=== PATIENT | female | born 1930 | race American Indian/Alaskan Native ===

== ENCOUNTER 2017-05-01 17:45 | Emergency (ER) | payer MEDICARE ==
--- NOTE | 2017-05-01 18:27 | EDM.PDOC ---
<Nikolai Rees - Last Filed: 05/01/17 18:57> ED HPI GENERAL MEDICAL PROBLEM - General Chief Complaint: Respiratory Problem Stated Complaint: COUGHING,CHEST HURTS [id number] Time Seen by Provider: 05/01/17 18:22 Source of Information: Reports: Patient History Limitations: Reports: No Limitations - History of Present Illness INITIAL COMMENTS - FREE TEXT/NARRATIVE: Patient complains of progressively worsening cough. She notes dyspnea with exertion. Denies chest pressure or chest tightness. Complains of a scratchy throat. Cough is nonproductive. No fever chills or night sweats. Complains of fatigue and generalized body ache. No ear pain or pressure. No sinus symptoms. No neck pressure or enlarged lymph nodes Duration: Day(s): Location: Reports: Neck, Chest Improves with: Reports: Rest Associated Symptoms: Reports: Cough, Malaise. Denies: Diaphoresis, Fever/Chills , Nausea/Vomiting - Related Data Allergies Allergy/AdvReac Type Severity Reaction Status Date / Time codeine Allergy Cannot Verified 02/10/16 18:52 Remember pentazocine Allergy Cannot Verified 02/10/16 18:52 Remember sulfamethoxazole Allergy Cannot Verified 02/10/16 18:52 [From Bactrim] Remember trimethoprim [From Bactrim] Allergy Cannot Verified 02/10/16 18:52 Remember Home Meds: Home Meds Allopurinol 300 mg PO Q48H 03/17/15 [History] Aspirin [Halfprin] 81 mg PO BRK 03/17/15 [History] Calcitriol [Rocaltrol] 0.25 mcg PO DAILY 03/17/15 [History] Cholecalciferol (Vitamin D3) [Vitamin D3] 1,000 unit PO DAILY 03/17/15 [History] Formoterol/Mometasone [Dulera 100 MCG/5 MCG] 2 puff PO BID 03/17/15 [History] Omeprazole 20 mg PO DAILY 03/17/15 [History] Simvastatin [Zocor] 40 mg PO BEDTIME 03/17/15 [History] amLODIPine Besylate [Amlodipine Besylate] 10 mg PO DAILY 03/17/15 [History] Lisinopril [Prinivil] 5 mg PO DAILY 06/14/15 [History] Albuterol [Take Home: Albuterol 0.083%, 4 Neb Pack] 3 ml NEB Q4H PRN 06/18/15 [ History] Albuterol/Ipratropium [DuoNeb 3.0-0.5 MG/3 ML] 3 ml NEB QID PRN 06/18/15 [ History] Calcium Citrate/Vitamin D3 [Calcium Cit-Vit D 315-200] 1 tab PO DAILY 06/18/15 [ History] Furosemide [Lasix] 20 mg PO Q48H tablet 06/18/15 [Rx] Metoprolol Succinate [Toprol XL] 50 mg PO DAILY #30 tab.er 06/26/15 [Rx] predniSONE [Prednisone] 10 mg PO DAILY #8 tablet 06/26/15 [Rx] Past Medical History HEENT History: Reports: Hard of Hearing, Impaired Vision Other HEENT History: Wears glasses while awake Cardiovascular History: Reports: Heart Failure, Hypertension Respiratory History: Reports: COPD, Pneumonia, Recurrent Genitourinary History: Reports: Renal Disease Other Genitourinary History: ESRD X3 [facility] [employer] History: Reports: Musculoskeletal History: Reports: Gout - Infectious Disease History Infectious Disease History: Reports: Chicken Pox, Measles - Past Surgical History Female Surgical History: Reports: None, Other (See Below) Social & Family History - Family History HEENT: Reports: None GI: Reports: None Endocrine/Metabolic: Reports: Diabetes, type II Other Endocrine/Metabolic Family History: 2x sons Oncologic: Reports: Renal Other Oncologic Family History: son - Tobacco Use Smoking Status *Q: Former Smoker Years of Tobacco use: 20 Packs/Tins Daily: 0.5 Used Tobacco, but Quit: Yes Month Tobacco Last Used: 02/1975 Second Hand Smoke Exposure: No - Caffeine Use Caffeine Use: Reports: Coffee, Tea - Recreational Drug Use Recreational Drug Use: No ED ROS GENERAL - Review of Systems Review Of Systems: See Below Constitutional: Reports: Malaise, Fatigue HEENT: Reports: Throat Pain Respiratory: Reports: Shortness of Breath, Cough. Denies: Sputum, Hemoptysis Cardiovascular: Reports: Dyspnea on Exertion, Lightheadedness. Denies: Edema, Orthopnea, Palpitations Endocrine: Reports: Fatigue GI/Abdominal: Denies: Abdominal Pain, Constipation, Diarrhea, Vomiting : Denies: Dysuria, Flank Pain, Frequency Musculoskeletal: Reports: Muscle Pain Skin: Reports: No Symptoms Neurological: Reports: No Symptoms Psychiatric: Reports: No Symptoms ED EXAM, GENERAL - Physical Exam Exam: See Below Exam Limited By: No Limitations General Appearance: Alert, No Apparent Distress Ears: Normal External Exam, Hearing Grossly Normal Nose: Normal Inspection, Normal Mucosa Throat/Mouth: Normal Inspection, Normal Oropharynx, Other (Dentures) Head: Atraumatic, Normocephalic Neck: Supple, Non-Tender. No: Lymphadenopathy (L), Lymphadenopathy (R) Respiratory/Chest: No Respiratory Distress, Normal Breath Sounds. No: Rales, Rhonchi, Wheezing Cardiovascular: Regular Rate, Rhythm, No Murmur GI/Abdominal: Soft, Non-Tender Back Exam: No: CVA Tenderness (L), CVA Tenderness (R) Extremities: No Pedal Edema, Normal Capillary Refill Neurological: Alert, Oriented, CN II-XII Intact, Other (Hard of hearing) Skin Exam: Warm, Dry Lymphatic: No Adenopathy Course - Vital Signs Last Recorded V/S: Last Vital Signs Temp 98.6 F 05/01/17 18:10 Pulse 83 05/01/17 18:10 Resp 20 05/01/17 18:10 BP 163/68 H 05/01/17 18:10 Pulse Ox 91 L 05/01/17 18:10 - Orders/Labs/Meds Orders: Active Orders 24 hr Category Date Time Status EKG Documentation Completion [RC] STAT Care 05/01/17 18:26 Active Labs: Laboratory Tests 05/01/17 05/01/17 05/01/17 Range/Units 18:35 18:35 18:35 WBC 8.0 (5.0-10.0) 10^3/uL RBC 3.64 L (4.2-5.4) 10^6/uL Hgb 11.9 L (12.0-16.0) g/dL Hct 36.3 L (37.0-47.0) % MCV 99.7 (80-100) fL MCH 32.7 (27.0-34.0) pg MCHC 32.8 L (33.0-35.0) g/dL Plt Count 209 (150-450) 10^3/uL Neut % (Auto) 48.5 (42.2-75.2) % Lymph % (Auto) 32.9 (20.5-50.1) % [place] % (Auto) 14.2 H (2-8) % Eos % (Auto) 3.9 H (1.0-3.0) % Baso % (Auto) 0.5 (0.0-1.0) % D-Dimer, Quantitative 967 H (0-400) ng/mL Sodium 136 (135-145) mmol/L Potassium 4.4 (3.6-5.0) mmol/L Chloride 101 (101-111) mmol/L Carbon Dioxide 28.0 (21.0-31.0) mmol/L Anion Gap 11.4 BUN 25 H (7-18) mg/dL Creatinine 1.4 H (0.6-1.3) mg/dL Est Cr Clr Drug Dosing 19.95 mL/min Estimated GFR (MDRD) 35 BUN/Creatinine Ratio 17.85 Glucose 157 H (74-105) mg/dL Calcium 8.8 (8.4-10.2) mg/dl Total Bilirubin 0.4 (0.2-1.0) mg/dL AST 22 (10-42) IU/L ALT 13 (10-60) IU/L Alkaline Phosphatase 75 (42-121) IU/L Troponin I 0.03 H* (0.00-0.02) ng/ml B-Natriuretic Peptide (0-100) pg/ml Total Protein 7.2 (6.7-8.2) g/dl Albumin 3.8 (3.2-5.5) g/dl Globulin 3.4 Albumin/Globulin Ratio 1.12 Urine Color (YELLOW) Urine Appearance (CLEAR) Urine pH (5.0-9.0) Ur Specific [place] (1.005-1.030) Urine Protein (NEGATIVE) Urine Glucose (UA) (NEGATIVE) Urine Ketones (NEGATIVE) Urine Occult Blood (NEGATIVE) Urine Nitrite (NEGATIVE) Urine Bilirubin (NEGATIVE) Urine Urobilinogen (0.2-1.0) mg/dL Ur Leukocyte Esterase (NEGATIVE) Urine RBC /HPF Urine WBC (0-5/HPF) /HPF Ur Epithelial Cells /HPF Urine Bacteria (0-FEW/HPF) /HPF 05/01/17 05/01/17 Range/Units 18:35 19:33 WBC (5.0-10.0) 10^3/uL RBC (4.2-5.4) 10^6/uL Hgb (12.0-16.0) g/dL Hct (37.0-47.0) % MCV (80-100) fL MCH (27.0-34.0) pg MCHC (33.0-35.0) g/dL Plt Count (150-450) 10^3/uL Neut % (Auto) (42.2-75.2) % Lymph % (Auto) (20.5-50.1) % [place] % (Auto) (2-8) % Eos % (Auto) (1.0-3.0) % Baso % (Auto) (0.0-1.0) % D-Dimer, Quantitative (0-400) ng/mL Sodium (135-145) mmol/L Potassium (3.6-5.0) mmol/L Chloride (101-111) mmol/L Carbon Dioxide (21.0-31.0) mmol/L Anion Gap BUN (7-18) mg/dL Creatinine (0.6-1.3) mg/dL Est Cr Clr Drug Dosing mL/min Estimated GFR (MDRD) BUN/Creatinine Ratio Glucose (74-105) mg/dL Calcium (8.4-10.2) mg/dl Total Bilirubin (0.2-1.0) mg/dL AST (10-42) IU/L ALT (10-60) IU/L Alkaline Phosphatase (42-121) IU/L Troponin I (0.00-0.02) ng/ml B-Natriuretic Peptide 23 (0-100) pg/ml Total Protein (6.7-8.2) g/dl Albumin (3.2-5.5) g/dl Globulin Albumin/Globulin Ratio Urine Color Yellow (YELLOW) Urine Appearance Slightly cloudy (CLEAR) Urine pH 5.0 (5.0-9.0) Ur Specific [place] 1.015 (1.005-1.030) Urine Protein 30 H (NEGATIVE) Urine Glucose (UA) Negative (NEGATIVE) Urine Ketones Negative (NEGATIVE) Urine Occult Blood Trace-intact H (NEGATIVE) Urine Nitrite Negative (NEGATIVE) Urine Bilirubin Negative (NEGATIVE) Urine Urobilinogen 0.2 (0.2-1.0) mg/dL Ur Leukocyte Esterase Small H (NEGATIVE) Urine RBC 0-5 /HPF Urine WBC 40-50 H (0-5/HPF) /HPF Ur Epithelial Cells Moderate H /HPF Urine Bacteria Many H (0-FEW/HPF) /HPF Meds: Medications Discontinued Medications Generic Name Dose Route Start Last Admin Trade Name Freq PRN Reason Stop Dose Admin Levofloxacin 500 mg 05/01/17 20:38 05/01/17 20:43 Levaquin PO 05/01/17 20:39 500 mg ONETIME ONE Administration Departure - Departure Disposition: Home, Self-Care 01 Clinical Impression: Strep throat URI (upper respiratory infection) Qualifiers: URI type: unspecified viral URI Qualified Code(s): J06.9 - Acute upper respiratory infection, unspecified - Discharge Information Instructions: Upper Respiratory Infection, Adult, Strep Throat Referrals: PCP,None [Primary Care Provider] - Forms: ED Department Discharge Additional Instructions: levaquin 250mg one daily for one week encourage fluids albuterol nebulizer every 4 hours as needed use oxygen follow up in clinic on Wednesday, sooner if symptoms worsen <Lashawn Richter - Last Filed: 05/02/17 03:54> Course - Orders/Labs/Meds Meds: Medications Discontinued Medications Generic Name Dose Route Start Last Admin Trade Name Freq PRN Reason Stop Dose Admin Levofloxacin 500 mg 05/01/17 20:38 05/01/17 20:43 Levaquin PO 05/01/17 20:39 500 mg ONETIME ONE Administration Departure - Departure Time of Disposition: 20:36 Condition: Fair
[2017-05-01 18:30] VITALS: BP 163/68
[2017-05-01] MEDS ORDERED: Levofloxacin 500 MG Tab PO ONE (20:38)
== END 2017-05-01 20:53 | disposition home or self-care (01) ==
LOC: DL.ED 17:45
DX: J02.0 Streptococcal pharyngitis (principal); J44.9 Chronic obstructive pulmonary disease, unspecified; I13.2 Hypertensive heart and chronic kidney disease with heart failure and with stage 5 chronic kidney disease, or end stage renal disease; N18.6 End stage renal disease; Z87.891 Personal history of nicotine dependence; Z79.82 Long term (current) use of aspirin; Z79.899 Other long term (current) drug therapy; Z88.1 Allergy status to other antibiotic agents; Z88.2 Allergy status to sulfonamides; Z88.5 Allergy status to narcotic agent; Z88.8 Allergy status to other drugs, medicaments and biological substances
CPT/HCPCS: 36415; 71046; 80053; 81001; 83880; 84484; 85025; 85379; 87430; 93005; 99285; A9270; 93010

== ENCOUNTER 2017-08-22 15:13 | Emergency (ER) | payer MEDICARE ==
[2017-08-22 15:26] VITALS: BP 142/53
[2017-08-22] MEDS: Sodium Chloride 0.9% 10 ML Syringe FLUSH PRN ×2 (15:35→17:24)
[2017-08-22 16:06] LABS: CHLORIDE,CL 97 mmol/L (98-109); SODIUM,NA 137 mmol/L (138-146)
[2017-08-22] MEDS ORDERED: cefTRIAXone 1 GM Vial IVPUSH ONE (17:00)
[2017-08-22] MEDS ORDERED: Ondansetron 4 MG/2 ML SDV IV ONE (17:00)
--- NOTE | 2017-08-22 17:03 | EDM.PDOC ---
Scribed by Mira King 08/22/17 [id number] for Papi Nascimento MD ED HPI GENERAL MEDICAL PROBLEM - General Chief Complaint: Respiratory Problem Stated Complaint: AMBULANCE - DIFFICULTY BREATHING Time Seen by Provider: 08/22/17 15:13 Source of Information: Reports: Patient, EMS, EMS Notes Reviewed, RN, RN Notes Reviewed History Limitations: Reports: No Limitations - History of Present Illness INITIAL COMMENTS - FREE TEXT/NARRATIVE: Patient presents to ER via [facility] with complaint of shortness of breath and not feeling well in general for several days. Denies chest pain or abdominal pain. Admits to cough and shortness of breath. Patient was seen in clinic this past week and was told that her urine was clear and was sent home without treatment. She states she has continued to feel worse and worse each day since then. Patient describes only vague symptoms and is unable to provide any further history. Duration: Getting Worse Location: Reports: Generalized Quality: Reports: Ache Severity: Severe Improves with: Reports: None Worsens with: Reports: None Associated Symptoms: Reports: No Other Symptoms - Related Data Allergies Allergy/AdvReac Type Severity Reaction Status Date / Time codeine Allergy Cannot Verified 08/22/17 15:26 Remember pentazocine Allergy Cannot Verified 08/22/17 15:26 Remember sulfamethoxazole Allergy Cannot Verified 08/22/17 15:26 [From Bactrim] Remember trimethoprim [From Bactrim] Allergy Cannot Verified 08/22/17 15:26 Remember Home Meds: Home Meds Allopurinol 300 mg PO Q48H 03/17/15 [History] Aspirin [Halfprin] 81 mg PO BRK 03/17/15 [History] Calcitriol [Rocaltrol] 0.25 mcg PO DAILY 03/17/15 [History] Cholecalciferol (Vitamin D3) [Vitamin D3] 1,000 unit PO DAILY 03/17/15 [History] Formoterol/Mometasone [Dulera 100 MCG/5 MCG] 2 puff PO BID 03/17/15 [History] Omeprazole 20 mg PO DAILY 03/17/15 [History] Simvastatin [Zocor] 40 mg PO BEDTIME 03/17/15 [History] amLODIPine Besylate [Amlodipine Besylate] 10 mg PO DAILY 03/17/15 [History] Lisinopril [Prinivil] 5 mg PO DAILY 06/14/15 [History] Albuterol [Take Home: Albuterol 0.083%, 4 Neb Pack] 3 ml NEB Q4H PRN 06/18/15 [ History] Albuterol/Ipratropium [DuoNeb 3.0-0.5 MG/3 ML] 3 ml NEB QID PRN 06/18/15 [ History] Calcium Citrate/Vitamin D3 [Calcium Cit-Vit D 315-200] 1 tab PO DAILY 06/18/15 [ History] Furosemide [Lasix] 20 mg PO Q48H tablet 06/18/15 [Rx] Metoprolol Succinate [Toprol XL] 50 mg PO DAILY #30 tab.er 06/26/15 [Rx] predniSONE [Prednisone] 10 mg PO DAILY #8 tablet 06/26/15 [Rx] Past Medical History HEENT History: Reports: Hard of Hearing, Impaired Vision Other HEENT History: Wears glasses while awake Cardiovascular History: Reports: Heart Failure, Hypertension Respiratory History: Reports: COPD, Pneumonia, Recurrent Genitourinary History: Reports: Renal Disease Other Genitourinary History: ESRD X3 [facility] FORMER History: Reports: Musculoskeletal History: Reports: Gout - Infectious Disease History Infectious Disease History: Reports: Chicken Pox, Measles - Past Surgical History Female Surgical History: Reports: None, Other (See Below) Social & Family History - Family History HEENT: Reports: None GI: Reports: None Endocrine/Metabolic: Reports: Diabetes, type II Other Endocrine/Metabolic Family History: 2x sons Oncologic: Reports: Renal Other Oncologic Family History: son - Caffeine Use Caffeine Use: Reports: Coffee, Tea - Living Situation & Occupation Living situation: Reports: Alone (with family nearby) Occupation: Retired ED ROS GENERAL - Review of Systems Review Of Systems: ROS reveals no pertinent complaints other than HPI. ED EXAM, GENERAL - Physical Exam Exam: See Below Exam Limited By: No Limitations General Appearance: Alert, No Apparent Distress, Anxious, Obese, Other (fraily elderly appearing. ) Eye Exam: Bilateral Eye: Normal Inspection Ears: Hearing Grossly Normal Nose: Normal Inspection, Normal Mucosa, No Blood Throat/Mouth: Normal Inspection, Normal Lips, Normal Teeth, Normal Gums, Normal Oropharynx, Normal Voice, No Airway Compromise Head: Atraumatic, Normocephalic Neck: Normal Inspection, Supple, Non-Tender, Full Range of Motion Respiratory/Chest: No Respiratory Distress, No Accessory Muscle Use, Decreased Breath Sounds, Crackles, Rales, Rhonchi (faint rhonchi right mid chest posteriorly. ) Cardiovascular: Regular Rate, Rhythm, No Edema GI/Abdominal: Normal Bowel Sounds, Soft, Non-Tender, No Distention. No: Guarding, Rigid, Rebound (Female) Exam: Deferred Rectal (Female) Exam: Deferred Back Exam: Normal Inspection, Full Range of Motion, NT Extremities: Normal Inspection, Normal Range of Motion, Non-Tender, Normal Capillary Refill, No Pedal Edema Neurological: Alert, Oriented, CN II-XII Intact, Normal Cognition, Normal Gait, No Motor/Sensory Deficits, Other (generalized weakness/physical deconditioning) Psychiatric: Anxious Skin Exam: Warm, Dry, Intact, Normal Color, No Rash EKG INTERPRETATION EKG Date: 08/22/17 Time: 15:34 Rhythm: Other (sinus rhythm) Rate (Beats/Min): 73 [place]: Normal P-Wave: Present QRS: LBBB (chronic) ST-T: Normal QT: Normal Comparison: No Change Course - Vital Signs Last Recorded V/S: Last Vital Signs Temp 37.7 C 08/22/17 15:22 Pulse 77 08/22/17 15:22 Resp 34 H 08/22/17 15:22 BP 142/53 H 08/22/17 15:22 Pulse Ox 98 08/22/17 15:22 - Orders/Labs/Meds Orders: Active Orders 24 hr Category Date Time Status EKG 12 Lead [EKG Documentation Completion] [] STAT Care 08/22/17 15:19 Active Peripheral IV Care [RC] . DIRECTED Care 08/22/17 15:20 Active B-TYPE NATRIURETIC PEPTIDE,BNP [CHEM] Stat Lab 08/22/17 15:45 Results COMPREHENSIVE METABOLIC PN,CMP [CHEM] Stat Lab 08/22/17 15:45 Results CULTURE BLOOD [BC] Stat Lab 08/22/17 15:45 Received CULTURE BLOOD [BC] Stat Lab 08/22/17 16:24 Received CULTURE URINE [RM] Stat Lab 08/22/17 17:00 Ordered TROPONIN I [CHEM] Stat Lab 08/22/17 15:45 Results UA W/MICROSCOPIC [URIN] Stat Lab 08/22/17 16:00 Ordered Sodium Chloride 0.9% [Saline Flush] Med 08/22/17 15:19 Active 10 ml FLUSH ASDIRECTED PRN Blood Culture x2 Reflex Set [OM.PC] Stat Oth 08/22/17 15:20 Ordered Peripheral IV Insertion Adult [OM.PC] Stat Oth 08/22/17 15:19 Ordered Medication Orders Sodium Chloride (Saline Flush) 10 ml FLUSH ASDIRECTED PRN PRN Reason: Keep Vein Open Last Admin: 08/22/17 15:35 Dose: 10 ml Labs: Laboratory Tests 08/22/17 08/22/17 08/22/17 Range/Units 15:45 15:45 15:45 WBC 10.1 H (5.0-10.0) 10^3/uL RBC 3.35 L (4.2-5.4) 10^6/uL Hgb 11.0 L (12.0-16.0) g/dL Hct 32.9 L (37.0-47.0) % MCV 98.2 (80-100) fL MCH 32.8 (27.0-34.0) pg MCHC 33.4 (33.0-35.0) g/dL Plt Count 214 (150-450) 10^3/uL Neut % (Auto) 70.4 (42.2-75.2) % Lymph % (Auto) 14.2 L (20.5-50.1) % [place] % (Auto) 14.1 H (2-8) % Eos % (Auto) 1.0 (1.0-3.0) % Baso % (Auto) 0.3 (0.0-1.0) % Sodium 137 L (138-146) mmol/L Potassium 3.9 (3.5-4.9) mmol/L Chloride 97 L (98-109) mmol/L Carbon Dioxide 24 (24-29) mmol/L Anion Gap 19.9 BUN 33 H (8-26) mg/dL Creatinine 1.5 H (0.6-1.3) mg/dL Est Cr Clr Drug Dosing TNP Estimated GFR (MDRD) 33 BUN/Creatinine Ratio 22.00 Glucose 163 H (70-105) mg/dL Lactic Acid 0.7 (0.5-2.2) mmol/L Calcium 1.1 Troponin I 0.03 H* (0.00-0.02) ng/ml B-Natriuretic Peptide 43 (0-100) pg/ml Urine Color (YELLOW) Urine Appearance (CLEAR) Urine pH (5.0-9.0) Ur Specific [place] (1.005-1.030) Urine Protein (NEGATIVE) Urine Glucose (UA) (NEGATIVE) Urine Ketones (NEGATIVE) Urine Occult Blood (NEGATIVE) Urine Nitrite (NEGATIVE) Urine Bilirubin (NEGATIVE) Urine Urobilinogen (0.2-1.0) mg/dL Ur Leukocyte Esterase (NEGATIVE) Urine RBC /HPF Urine WBC (0-5/HPF) /HPF Ur Epithelial Cells /HPF Urine Bacteria (0-FEW/HPF) /HPF Urine Mucus /LPF 08/22/17 Range/Units 16:00 WBC (5.0-10.0) 10^3/uL RBC (4.2-5.4) 10^6/uL Hgb (12.0-16.0) g/dL Hct (37.0-47.0) % MCV (80-100) fL MCH (27.0-34.0) pg MCHC (33.0-35.0) g/dL Plt Count (150-450) 10^3/uL Neut % (Auto) (42.2-75.2) % Lymph % (Auto) (20.5-50.1) % [place] % (Auto) (2-8) % Eos % (Auto) (1.0-3.0) % Baso % (Auto) (0.0-1.0) % Sodium (138-146) mmol/L Potassium (3.5-4.9) mmol/L Chloride (98-109) mmol/L Carbon Dioxide (24-29) mmol/L Anion Gap BUN (8-26) mg/dL Creatinine (0.6-1.3) mg/dL Est Cr Clr Drug Dosing Estimated GFR (MDRD) BUN/Creatinine Ratio Glucose (70-105) mg/dL Lactic Acid (0.5-2.2) mmol/L Calcium Troponin I (0.00-0.02) ng/ml B-Natriuretic Peptide (0-100) pg/ml Urine Color Yellow (YELLOW) Urine Appearance Cloudy (CLEAR) Urine pH 5.5 (5.0-9.0) Ur Specific [place] 1.010 (1.005-1.030) Urine Protein Trace H (NEGATIVE) Urine Glucose (UA) Negative (NEGATIVE) Urine Ketones Negative (NEGATIVE) Urine Occult Blood Small H (NEGATIVE) Urine Nitrite Negative (NEGATIVE) Urine Bilirubin Negative (NEGATIVE) Urine Urobilinogen 0.2 (0.2-1.0) mg/dL Ur Leukocyte Esterase Small H (NEGATIVE) Urine RBC 5-10 H /HPF Urine WBC 30-40 H (0-5/HPF) /HPF Ur Epithelial Cells Rare /HPF Urine Bacteria Many H (0-FEW/HPF) /HPF Urine Mucus Not seen /LPF Meds: Medications Generic Name Dose Route Start Last Admin Trade Name Freq PRN Reason Stop Dose Admin Sodium Chloride 10 ml 08/22/17 15:19 08/22/17 15:35 Saline Flush FLUSH 10 ml ASDIRECTED PRN Administration Keep Vein Open Discontinued Medications Generic Name Dose Route Start Last Admin Trade Name Freq PRN Reason Stop Dose Admin Ceftriaxone Sodium 1 gm 08/22/17 17:00 Rocephin IVPUSH 08/22/17 17:01 ONETIME ONE Ondansetron HCl 4 mg 08/22/17 17:00 Zofran IV 08/22/17 17:01 ONETIME ONE - Radiology Interpretation Free Text/Narrative:: Chest x-ray: No acute cardiopulmonary process. Summation shadow artifact versus right midlung nodule. Repeat PA view of thorax with better inspiratory effort is advised. See rad report. - Re-Assessments/Exams Free Text/Narrative Re-Assessment/Exam: 08/22/17 15:44 Patient went to the clinic and had a urine obtained on 08/19/17. Patient understood that her urine was clear, however, records reveal a UTI growing greater than 100,000 CFU of E-coli sensitive Cipro and Ceftriaxone. Departure - Departure Time of Disposition: 17:02 Disposition: Home, Self-Care 01 Condition: Fair Clinical Impression: UTI (urinary tract infection), bacterial - Discharge Information Instructions: Urinary Tract Infection, Adult Referrals: Mary Kate Pope MD [Primary Care Provider] - Forms: ED Department Discharge Additional Instructions: Rx: Cipro 500mg Rx: Zofran 4mg Follow up in clinic in 5 to 7 days for recheck. Return to ER if worse at any time. - My Orders Last 24 Hours: My Active Orders 08/22/17 15:19 EKG 12 Lead [EKG Documentation Completion] [RC] STAT Sodium Chloride 0.9% [Saline Flush] 10 ml FLUSH ASDIRECTED PRN Peripheral IV Insertion Adult [OM.PC] Stat 08/22/17 15:20 Peripheral IV Care [RC] . DIRECTED Blood Culture x2 Reflex Set [OM.PC] Stat 08/22/17 15:45 B-TYPE NATRIURETIC PEPTIDE,BNP [CHEM] Stat COMPREHENSIVE METABOLIC PN,CMP [CHEM] Stat CULTURE BLOOD [BC] Stat TROPONIN I [CHEM] Stat 08/22/17 16:00 UA W/MICROSCOPIC [URIN] Stat 08/22/17 16:24 CULTURE BLOOD [BC] Stat 08/22/17 17:00 CULTURE URINE [RM] Stat - Assessment/Plan Last 24 Hours: My Active Orders 08/22/17 15:19 EKG 12 Lead [EKG Documentation Completion] [RC] STAT Sodium Chloride 0.9% [Saline Flush] 10 ml FLUSH ASDIRECTED PRN Peripheral IV Insertion Adult [OM.PC] Stat 08/22/17 15:20 Peripheral IV Care [RC] . DIRECTED Blood Culture x2 Reflex Set [OM.PC] Stat 08/22/17 15:45 B-TYPE NATRIURETIC PEPTIDE,BNP [CHEM] Stat COMPREHENSIVE METABOLIC PN,CMP [CHEM] Stat CULTURE BLOOD [BC] Stat TROPONIN I [CHEM] Stat 08/22/17 16:00 UA W/MICROSCOPIC [URIN] Stat 08/22/17 16:24 CULTURE BLOOD [BC] Stat 08/22/17 17:00 CULTURE URINE [RM] Stat I have read and agree with the documentation that has been completed regarding this visit. By signing this record, I attest that the documentation was completed in my physical presence and is an accurate record of the encounter.
--- NOTE | 2017-08-24 17:48 | EKG ---
08/22/2017 - DAVI VILLARREAL - TIME: 3:34 p.m. FINDINGS: Sinus rhythm at 73 with left bundle branch block. [facility] /[id number]
== END 2017-08-22 17:50 | disposition home or self-care (01) ==
LOC: DL.ED 15:13
DX: N39.0 Urinary tract infection, site not specified (principal); B96.89 Other specified bacterial agents as the cause of diseases classified elsewhere; I13.2 Hypertensive heart and chronic kidney disease with heart failure and with stage 5 chronic kidney disease, or end stage renal disease; I50.9 Heart failure, unspecified; J44.9 Chronic obstructive pulmonary disease, unspecified; Z88.5 Allergy status to narcotic agent; Z88.8 Allergy status to other drugs, medicaments and biological substances; Z88.2 Allergy status to sulfonamides; Z88.1 Allergy status to other antibiotic agents; Z79.82 Long term (current) use of aspirin; Z79.899 Other long term (current) drug therapy
CPT/HCPCS: 36415; 71045; 80053; 81001; 83605; 83880; 84484; 85025; 87040; 87086; 87088; 87186; 93005; 93010; 96374; 96375; 99283; 99285; J0696; J2405; J7050

== ENCOUNTER 2018-05-17 08:53 | Emergency (ER) | payer MEDICARE ==
[2018-05-17 09:11] VITALS: BP 178/83
[2018-05-17 09:55] LABS: ANION GAP 12.1
--- NOTE | 2018-05-17 10:00 | EDM.PDOC ---
<SurjitSharon R - Last Filed: 05/17/18 14:32> ED HPI GENERAL MEDICAL PROBLEM - General Chief Complaint: General Stated Complaint: BONES ACHE, SNIFFLES Time Seen by Provider: 05/17/18 09:00 Source of Information: Reports: Patient, Family, RN, RN Notes Reviewed History Limitations: Reports: No Limitations - History of Present Illness INITIAL COMMENTS - FREE TEXT/NARRATIVE: Patient presents to the ED vis wheelchair with complaints of right shoulder pain , body aches, and weakness for 3 weeks. She states she "just doesn't feel good. " She feels short of breath and has home oxygen PRN for SOB. She denies fever, chills, chest pain, N&V. Her daughter states she is having increasing short term memory difficulties. Duration: Week(s): (3) Location: Reports: Generalized Worsens with: Reports: Movement Associated Symptoms: Reports: Cough, Shortness of Breath, Weakness. Denies: Chest Pain, Fever/Chills, Nausea/Vomiting - Related Data Allergies Allergy/AdvReac Type Severity Reaction Status Date / Time codeine Allergy Cannot Verified 05/17/18 09:34 Remember pentazocine Allergy Cannot Verified 05/17/18 09:34 Remember sulfamethoxazole Allergy Cannot Verified 05/17/18 09:34 [From Bactrim] Remember trimethoprim [From Bactrim] Allergy Cannot Verified 05/17/18 09:34 Remember Home Meds: Home Meds Allopurinol 300 mg PO Q48H 03/17/15 [History] Aspirin [Halfprin] 81 mg PO BRK 03/17/15 [History] Calcitriol [Rocaltrol] 0.25 mcg PO DAILY 03/17/15 [History] Cholecalciferol (Vitamin D3) [Vitamin D3] 1,000 unit PO DAILY 03/17/15 [History] Formoterol/Mometasone [Dulera 100 MCG/5 MCG] 2 puff PO BID 03/17/15 [History] Omeprazole 20 mg PO DAILY 03/17/15 [History] Simvastatin [Zocor] 40 mg PO BEDTIME 03/17/15 [History] amLODIPine Besylate [Amlodipine Besylate] 10 mg PO DAILY 03/17/15 [History] Lisinopril [Prinivil] 5 mg PO DAILY 06/14/15 [History] Albuterol [Take Home: Albuterol 0.083%, 4 Neb Pack] 3 ml NEB Q4H PRN 06/18/15 [ History] Albuterol/Ipratropium [DuoNeb 3.0-0.5 MG/3 ML] 3 ml NEB QID PRN 06/18/15 [ History] Calcium Citrate/Vitamin D3 [Calcium Cit-Vit D 315-200] 1 tab PO DAILY 06/18/15 [ History] Furosemide [Lasix] 20 mg PO Q48H tablet 06/18/15 [Rx] Metoprolol Succinate [Toprol XL] 50 mg PO DAILY #30 tab.er 06/26/15 [Rx] predniSONE [Prednisone] 10 mg PO DAILY #8 tablet 06/26/15 [Rx] Social & Family History - Living Situation & Occupation Living situation: Reports: Alone (with family nearby that checks on her daily) ED ROS GENERAL - Review of Systems Review Of Systems: See Below Constitutional: Reports: Weakness, Fatigue. Denies: Fever, Chills HEENT: Reports: Rhinitis Respiratory: Reports: Shortness of Breath, Cough. Denies: Wheezing Cardiovascular: Reports: Dyspnea on Exertion (requiring home oxygen PRN) Endocrine: Reports: No Symptoms GI/Abdominal: Reports: No Symptoms : Reports: No Symptoms Musculoskeletal: Reports: No Symptoms Skin: Reports: No Symptoms Neurological: Reports: Weakness. Denies: Confusion, Numbness, Paresthesia, Syncope, Tingling Psychiatric: Reports: No Symptoms Hematologic/Lymphatic: Reports: No Symptoms Immunologic: Reports: No Symptoms ED EXAM, GENERAL - Physical Exam Exam: See Below Exam Limited By: No Limitations General Appearance: Alert, WD/WN, No Apparent Distress, Other (Patient presents in WC with daughter. Patient weakness and needed assistance to transfer to bed. ) Ears: Normal External Exam, Normal Canal, Hearing Grossly Normal, Other (TM obscured by cereumen) Nose: Normal Inspection, Normal Mucosa, No Blood Throat/Mouth: Normal Inspection, Normal Lips, Normal Teeth, Normal Gums, Normal Oropharynx, Normal Voice, No Airway Compromise Head: Atraumatic, Normocephalic Neck: Normal Inspection, Supple, Non-Tender, Full Range of Motion Respiratory/Chest: No Respiratory Distress, No Accessory Muscle Use, Chest Non- Tender, Decreased Breath Sounds (left bases). No: Crackles, Rhonchi, Wheezing, Stridor, Accessory Muscle Use Cardiovascular: Normal Peripheral Pulses, Regular Rate, Rhythm, No Gallop, No JVD, No Murmur, No Rub Peripheral Pulses: 2+: Brachial (L), Brachial (R), Posterior Tibial (L), Posterior Tibial (R) GI/Abdominal: Normal Bowel Sounds, Soft, Non-Tender, No Organomegaly, No Distention, No Abnormal Bruit, No Mass (Female) Exam: Deferred Rectal (Female) Exam: Deferred Back Exam: Normal Inspection, Full Range of Motion, NT Extremities: Normal Inspection, Normal Range of Motion, Non-Tender, Normal Capillary Refill, Pedal Edema (trace) Neurological: Alert, Oriented Psychiatric: Normal Affect, Normal Mood Skin Exam: Warm, Dry, Intact, Normal Color, No Rash Lymphatic: No Adenopathy Course - Vital Signs Last Recorded V/S: Last Vital Signs Temp 36.3 C 05/17/18 09:09 Pulse 77 05/17/18 09:09 Resp 18 05/17/18 09:09 BP 178/83 H 05/17/18 09:09 Pulse Ox 95 05/17/18 09:09 - Orders/Labs/Meds Orders: Active Orders 24 hr Category Date Time Status EKG 12 Lead [EKG Documentation Completion] [RC] URGENT Care 05/17/18 09:16 Active CULTURE URINE [RM] Stat Lab 05/17/18 10:08 Received Labs: Laboratory Tests 05/17/18 05/17/18 05/17/18 Range/Units 09:27 09:27 09:27 WBC 6.3 (5.0-10.0) 10^3/uL RBC 3.68 L (4.2-5.4) 10^6/uL Hgb 12.0 (12.0-16.0) g/dL Hct 36.6 L (37.0-47.0) % MCV 99.5 (80-100) fL MCH 32.6 (27.0-34.0) pg MCHC 32.8 L (33.0-35.0) g/dL Plt Count 247 (150-450) 10^3/uL Neut % (Auto) 60.7 (42.2-75.2) % Lymph % (Auto) 26.7 (20.5-50.1) % [place] % (Auto) 8.9 H (2-8) % Eos % (Auto) 3.2 H (1.0-3.0) % Baso % (Auto) 0.5 (0.0-1.0) % Sodium 136 (135-145) mmol/L Potassium 4.1 (3.6-5.0) mmol/L Chloride 100 L (101-111) mmol/L Carbon Dioxide 28.0 (21.0-31.0) mmol/L Anion Gap 12.1 BUN 25 H (7-18) mg/dL Creatinine 1.1 (0.6-1.3) mg/dL Est Cr Clr Drug Dosing 27.42 mL/min Estimated GFR (MDRD) 47 BUN/Creatinine Ratio 22.72 Glucose 205 H (74-105) mg/dL Calcium 8.9 (8.4-10.2) mg/dl Total Bilirubin 0.8 (0.2-1.0) mg/dL AST 22 (10-42) IU/L ALT 13 (10-60) IU/L Alkaline Phosphatase 57 (42-121) IU/L Troponin I 0.02 (0.00-0.02) ng/ml C-Reactive Protein < 0.5 (0.0-1.3) mg/dL B-Natriuretic Peptide 20 (0-100) pg/ml Total Protein 7.1 (6.7-8.2) g/dl Albumin 3.8 (3.2-5.5) g/dl Globulin 3.3 Albumin/Globulin Ratio 1.15 Urine Color (YELLOW) Urine Appearance (CLEAR) Urine pH (5.0-9.0) Ur Specific [place] (1.005-1.030) Urine Protein (NEGATIVE) Urine Glucose (UA) (NEGATIVE) Urine Ketones (NEGATIVE) Urine Occult Blood (NEGATIVE) Urine Nitrite (NEGATIVE) Urine Bilirubin (NEGATIVE) Urine Urobilinogen (0.2-1.0) mg/dL Ur Leukocyte Esterase (NEGATIVE) Urine RBC /HPF Urine WBC (0-5/HPF) /HPF Ur Epithelial Cells /HPF Urine Bacteria (0-FEW/HPF) /HPF Urine Mucus /LPF 05/17/18 Range/Units 10:08 WBC (5.0-10.0) 10^3/uL RBC (4.2-5.4) 10^6/uL Hgb (12.0-16.0) g/dL Hct (37.0-47.0) % MCV (80-100) fL MCH (27.0-34.0) pg MCHC (33.0-35.0) g/dL Plt Count (150-450) 10^3/uL Neut % (Auto) (42.2-75.2) % Lymph % (Auto) (20.5-50.1) % [place] % (Auto) (2-8) % Eos % (Auto) (1.0-3.0) % Baso % (Auto) (0.0-1.0) % Sodium (135-145) mmol/L Potassium (3.6-5.0) mmol/L Chloride (101-111) mmol/L Carbon Dioxide (21.0-31.0) mmol/L Anion Gap BUN (7-18) mg/dL Creatinine (0.6-1.3) mg/dL Est Cr Clr Drug Dosing mL/min Estimated GFR (MDRD) BUN/Creatinine Ratio Glucose (74-105) mg/dL Calcium (8.4-10.2) mg/dl Total Bilirubin (0.2-1.0) mg/dL AST (10-42) IU/L ALT (10-60) IU/L Alkaline Phosphatase (42-121) IU/L Troponin I (0.00-0.02) ng/ml C-Reactive Protein (0.0-1.3) mg/dL B-Natriuretic Peptide (0-100) pg/ml Total Protein (6.7-8.2) g/dl Albumin (3.2-5.5) g/dl Globulin Albumin/Globulin Ratio Urine Color Yellow (YELLOW) Urine Appearance Slightly cloudy (CLEAR) Urine pH 6.0 (5.0-9.0) Ur Specific [place] 1.015 (1.005-1.030) Urine Protein 100 H (NEGATIVE) Urine Glucose (UA) Negative (NEGATIVE) Urine Ketones Negative (NEGATIVE) Urine Occult Blood Large H (NEGATIVE) Urine Nitrite Negative (NEGATIVE) Urine Bilirubin Negative (NEGATIVE) Urine Urobilinogen 0.2 (0.2-1.0) mg/dL Ur Leukocyte Esterase Moderate H (NEGATIVE) Urine RBC 0-5 /HPF Urine WBC 5-10 H (0-5/HPF) /HPF Ur Epithelial Cells Rare /HPF Urine Bacteria Many H (0-FEW/HPF) /HPF Urine Mucus Not seen /LPF Departure - Departure Time of Disposition: 10:55 Disposition: Home, Self-Care 01 Condition: Good Clinical Impression: UTI, Urinary tract infectious disease - Discharge Information *PRESCRIPTION DRUG MONITORING PROGRAM REVIEWED*: Not Applicable *COPY OF PRESCRIPTION DRUG MONITORING REPORT IN PATIENT SAMI: Not Applicable Instructions: Urinary Tract Infection, Adult, [id number] Referrals: Mary Kate Pope MD [Primary Care Provider] - Forms: ED Department Discharge Additional Instructions: Augmentin 1 tablet twice a day for 10 days Increase fluid intake Return to ED if symptoms worsens or new symptoms develop Call clinic today to make appointment with PCP in 2 days. - My Orders Last 24 Hours: My Active Orders 05/17/18 09:16 EKG 12 Lead [EKG Documentation Completion] [RC] URGENT 05/17/18 10:08 CULTURE URINE [RM] Stat - Assessment/Plan Last 24 Hours: My Active Orders 05/17/18 09:16 EKG 12 Lead [EKG Documentation Completion] [RC] URGENT 05/17/18 10:08 CULTURE URINE [RM] Stat Assessment:: Urinary tract infection Plan: Augmentin 1 tablet twice a day for 10 days Increase fluid intake Return to ED if symptoms worsens or new symptoms develop Call clinic today to make appointment with PCP in 2 days <Babatunde Barry - Last Filed: 05/17/18 14:44> ED HPI GENERAL MEDICAL PROBLEM Generalized Pain Score (Numeric/FACES): 4 Past Medical History HEENT History: Reports: Hard of Hearing, Impaired Vision Other HEENT History: Wears glasses while awake Cardiovascular History: Reports: Heart Failure, Hypertension Respiratory History: Reports: COPD, Pneumonia, Recurrent Genitourinary History: Reports: Renal Disease Other Genitourinary History: ESRD X3 [employer] History: Reports: Musculoskeletal History: Reports: Gout - Infectious Disease History Infectious Disease History: Reports: Chicken Pox, Measles - Past Surgical History GI Surgical History: Reports: Cholecystectomy Female Surgical History: Reports: None Social & Family History - Family History HEENT: Reports: None GI: Reports: None Endocrine/Metabolic: Reports: Diabetes, type II Other Endocrine/Metabolic Family History: 2x sons Oncologic: Reports: Renal Other Oncologic Family History: son - Tobacco Use Smoking Status *Q: Former Smoker Used Tobacco, but Quit: Yes Month/Year Tobacco Last Used: 03/1979 - Caffeine Use Caffeine Use: Reports: Coffee, Tea - Recreational Drug Use Recreational Drug Use: No - Living Situation & Occupation Living situation: Reports: Alone (with family nearby) 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 Probable right infrahilar infiltrate as on 03/13/18. Recommend follow-up - Re-Assessments/Exams Free Text/Narrative Re-Assessment/Exam: 05/17/18 10:00 I personally performed or re-performed the physical examination and medical decision making. I have verified all student documentation or findings, including history, physical exam and/or medical decision making, with the following exceptions []. 05/17/18 14:41 General he appears well. She has a questionable infiltrate on her chest x-ray and she has asymptomatic urinary tract infection. Although with her rather old age and the findings of a questionable infiltrate and her symptoms we will treat her with Augmentin which should cover both of these. We will culture her urine as well. I like her rechecked in the next couple of days in the clinic to ensure improvement. She is comfortable with this plan and her questions are answered.
== END 2018-05-17 11:05 | disposition home or self-care (01) ==
LOC: DL.ED 08:53
DX: R06.02 Shortness of breath (principal); R53.1 Weakness; N39.0 Urinary tract infection, site not specified; I13.2 Hypertensive heart and chronic kidney disease with heart failure and with stage 5 chronic kidney disease, or end stage renal disease; I50.9 Heart failure, unspecified; N18.6 End stage renal disease; M10.9 Gout, unspecified; Z88.5 Allergy status to narcotic agent; Z88.2 Allergy status to sulfonamides; Z87.01 Personal history of pneumonia (recurrent); Z90.49 Acquired absence of other specified parts of digestive tract; Z79.82 Long term (current) use of aspirin; Z79.899 Other long term (current) drug therapy; Z87.891 Personal history of nicotine dependence
CPT/HCPCS: 36415; 71046; 80053; 81001; 83880; 84484; 85025; 86140; 87086; 87804; 93005; 99284-25

== ENCOUNTER 2018-06-12 12:10 | Emergency (ER) | payer MEDICARE ==
[2018-06-12] MEDS ORDERED: Albuterol 0.083% 2.5 MG/3 ML Neb Soln INH ONE (12:11)
[2018-06-12] MEDS ORDERED: Doxycycline 100 MG Cap PO ONE ×2 (12:11→14:29)
--- NOTE | 2018-06-12 13:02 | EDM.PDOC ---
ED HPI GENERAL MEDICAL PROBLEM - General Chief Complaint: Respiratory Problem Stated Complaint: COUGH Time Seen by Provider: 06/12/18 12:57 Source of Information: Reports: Patient History Limitations: Reports: No Limitations - History of Present Illness INITIAL COMMENTS - FREE TEXT/NARRATIVE: Patient comes to the department today from home with concerns of increasing shortness of breath. Over the past 3-4 days she has been more short of breath than usual. She does have a history of COPD for which she is on continuous oxygen at home. She's had little increased cough. No increase in her sputum production. She has had some tightness in her chest but no pain. No fever no chills. No weakness dizziness lightheadedness. No syncope. No palpitations. No abdominal pain. No nausea no vomiting. No diarrhea. She does complain of increased exercise intolerance. He does not use a nebulizer at home although does have the machine. No tubing. - Related Data Allergies Allergy/AdvReac Type Severity Reaction Status Date / Time codeine Allergy Cannot Verified 06/12/18 13:29 Remember pentazocine Allergy Cannot Verified 06/12/18 13:29 Remember sulfamethoxazole Allergy Cannot Verified 06/12/18 13:29 [From Bactrim] Remember trimethoprim [From Bactrim] Allergy Cannot Verified 06/12/18 13:29 Remember Home Meds: Home Meds Allopurinol 300 mg PO Q48H 03/17/15 [History] Aspirin [Halfprin] 81 mg PO BRK 03/17/15 [History] Calcitriol [Rocaltrol] 0.25 mcg PO DAILY 03/17/15 [History] Cholecalciferol (Vitamin D3) [Vitamin D3] 1,000 unit PO DAILY 03/17/15 [History] Formoterol/Mometasone [Dulera 100 MCG/5 MCG] 2 puff PO BID 03/17/15 [History] Omeprazole 20 mg PO DAILY 03/17/15 [History] Simvastatin [Zocor] 40 mg PO BEDTIME 03/17/15 [History] amLODIPine Besylate [Amlodipine Besylate] 10 mg PO DAILY 03/17/15 [History] Lisinopril [Prinivil] 5 mg PO DAILY 06/14/15 [History] Albuterol [Take Home: Albuterol 0.083%, 4 Neb Pack] 3 ml NEB Q4H PRN 06/18/15 [ History] Albuterol/Ipratropium [DuoNeb 3.0-0.5 MG/3 ML] 3 ml NEB QID PRN 06/18/15 [ History] Calcium Citrate/Vitamin D3 [Calcium Cit-Vit D 315-200] 1 tab PO DAILY 06/18/15 [ History] Furosemide [Lasix] 20 mg PO Q48H tablet 06/18/15 [Rx] Metoprolol Succinate [Toprol XL] 50 mg PO DAILY #30 tab.er 06/26/15 [Rx] predniSONE [Prednisone] 10 mg PO DAILY #8 tablet 06/26/15 [Rx] Past Medical History HEENT History: Reports: Hard of Hearing, Impaired Vision Other HEENT History: Wears glasses while awake Cardiovascular History: Reports: Heart Failure, Hypertension Respiratory History: Reports: COPD, Pneumonia, Recurrent Genitourinary History: Reports: Renal Disease 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: Musculoskeletal History: Reports: Gout - Infectious Disease History Infectious Disease History: Reports: Chicken Pox, Measles - Past Surgical History GI Surgical History: Reports: Cholecystectomy Female Surgical History: Reports: None Social & Family History - Family History HEENT: Reports: None GI: Reports: None Endocrine/Metabolic: Reports: Diabetes, type II Other Endocrine/Metabolic Family History: 2x sons Oncologic: Reports: Renal Other Oncologic Family History: son - Caffeine Use Caffeine Use: Reports: Coffee, Tea - Living Situation & Occupation Living situation: Reports: Alone (with family nearby) Occupation: Retired ED ROS GENERAL - Review of Systems Review Of Systems: ROS reveals no pertinent complaints other than HPI. ED EXAM, GENERAL - Physical Exam Exam: See Below Free Text/Narrative:: She appears in no acute distress. No increased work of breathing. She is able to speak in full sentences. There is some audible wheezing expiratory. Exam Limited By: No Limitations General Appearance: Alert, WD/WN, No Apparent Distress Nose: Normal Inspection Throat/Mouth: Normal Inspection Head: Atraumatic, Normocephalic Neck: Normal Inspection, Supple Respiratory/Chest: No Respiratory Distress, No Accessory Muscle Use, Chest Non- Tender, Decreased Breath Sounds (Decreased breath sounds throughout), Wheezing ( Expiratory wheeze bilaterally). No: Crackles, Rales, Rhonchi, Accessory Muscle Use Cardiovascular: Normal Peripheral Pulses, Regular Rate, Rhythm Peripheral Pulses: 2+: Radial (L), Radial (R), Posterior Tibial (L), Posterior Tibial (R), Dorsalis Pedis (L), Dorsalis Pedis (R) GI/Abdominal: Normal Bowel Sounds, Soft Back Exam: Normal Inspection Extremities: Normal Inspection, Normal Range of Motion, Non-Tender, No Pedal Edema, Normal Capillary Refill Neurological: Alert, Oriented, Normal Cognition, No Motor/Sensory Deficits Psychiatric: Normal Affect, Normal Mood Skin Exam: Warm, Dry, Intact, Normal Color, No Rash Lymphatic: No Adenopathy EKG INTERPRETATION EKG Date: 06/12/18 Time: 13:26 Rhythm: NSR Rate (Beats/Min): 74 [place]: Normal P-Wave: Present QRS: LBBB ST-T: Normal QT: Normal Comparison: No Change Course - Vital Signs Last Recorded V/S: Last Vital Signs Temp 36.9 C 06/12/18 15:17 Pulse 75 06/12/18 17:52 Resp 20 06/12/18 17:33 BP 144/87 H 06/12/18 17:33 Pulse Ox 95 06/12/18 17:52 - Orders/Labs/Meds Orders: Active Orders 24 hr Category Date Time Status EKG 12 Lead [EKG Documentation Completion] [RC] URGENT Care 06/12/18 13:02 Active RT Aerosol Therapy [RC] ASDIRECTED Care 06/12/18 13:05 Active RT Aerosol Therapy [RC] ASDIRECTED Care 06/12/18 17:52 Active Labs: Laboratory Tests 06/12/18 06/12/18 06/12/18 Range/Units 13:21 13:21 13:21 WBC 13.3 H (5.0-10.0) 10^3/uL RBC 4.09 L (4.2-5.4) 10^6/uL Hgb 13.4 (12.0-16.0) g/dL Hct 40.1 (37.0-47.0) % MCV 98.0 (80-100) fL MCH 32.8 (27.0-34.0) pg MCHC 33.4 (33.0-35.0) g/dL Plt Count 234 (150-450) 10^3/uL Neut % (Auto) 66.1 (42.2-75.2) % Lymph % (Auto) 23.7 (20.5-50.1) % [place] % (Auto) 8.3 H (2-8) % Eos % (Auto) 1.6 (1.0-3.0) % Baso % (Auto) 0.3 (0.0-1.0) % Sodium (135-145) mmol/L Potassium (3.6-5.0) mmol/L Chloride (101-111) mmol/L Carbon Dioxide (21.0-31.0) mmol/L Anion Gap BUN (7-18) mg/dL Creatinine (0.6-1.3) mg/dL Est Cr Clr Drug Dosing mL/min Estimated GFR (MDRD) BUN/Creatinine Ratio Glucose (74-105) mg/dL Lactic Acid 0.9 (0.5-2.2) mmol/L Calcium (8.4-10.2) mg/dl Total Bilirubin (0.2-1.0) mg/dL AST (10-42) IU/L ALT (10-60) IU/L Alkaline Phosphatase (42-121) IU/L Troponin I 0.03 H* (0.00-0.02) ng/ml C-Reactive Protein (0.0-1.3) mg/dL B-Natriuretic Peptide (0-100) pg/ml Total Protein (6.7-8.2) g/dl Albumin (3.2-5.5) g/dl Globulin Albumin/Globulin Ratio 06/12/18 06/12/18 06/12/18 Range/Units 13:21 13:21 13:21 WBC (5.0-10.0) 10^3/uL RBC (4.2-5.4) 10^6/uL Hgb (12.0-16.0) g/dL Hct (37.0-47.0) % MCV (80-100) fL MCH (27.0-34.0) pg MCHC (33.0-35.0) g/dL Plt Count (150-450) 10^3/uL Neut % (Auto) (42.2-75.2) % Lymph % (Auto) (20.5-50.1) % [place] % (Auto) (2-8) % Eos % (Auto) (1.0-3.0) % Baso % (Auto) (0.0-1.0) % Sodium 136 (135-145) mmol/L Potassium 3.9 (3.6-5.0) mmol/L Chloride 99 L (101-111) mmol/L Carbon Dioxide 25.0 (21.0-31.0) mmol/L Anion Gap 15.9 BUN 28 H (7-18) mg/dL Creatinine 1.1 (0.6-1.3) mg/dL Est Cr Clr Drug Dosing 24.90 mL/min Estimated GFR (MDRD) 47 BUN/Creatinine Ratio 25.45 Glucose 165 H (74-105) mg/dL Lactic Acid (0.5-2.2) mmol/L Calcium 9.2 (8.4-10.2) mg/dl Total Bilirubin 0.9 (0.2-1.0) mg/dL AST 26 (10-42) IU/L ALT 15 (10-60) IU/L Alkaline Phosphatase 62 (42-121) IU/L Troponin I (0.00-0.02) ng/ml C-Reactive Protein 3.1 H (0.0-1.3) mg/dL B-Natriuretic Peptide 34 (0-100) pg/ml Total Protein 7.8 (6.7-8.2) g/dl Albumin 4.1 (3.2-5.5) g/dl Globulin 3.7 Albumin/Globulin Ratio 1.11 // Range/Units 16:58 WBC (5.0-10.0) 10^3/uL RBC (4.2-5.4) 10^6/uL Hgb (12.0-16.0) g/dL Hct (37.0-47.0) % MCV (80-100) fL MCH (27.0-34.0) pg MCHC (33.0-35.0) g/dL Plt Count (150-450) 10^3/uL Neut % (Auto) (42.2-75.2) % Lymph % (Auto) (20.5-50.1) % [place] % (Auto) (2-8) % Eos % (Auto) (1.0-3.0) % Baso % (Auto) (0.0-1.0) % Sodium (135-145) mmol/L Potassium (3.6-5.0) mmol/L Chloride (101-111) mmol/L Carbon Dioxide (21.0-31.0) mmol/L Anion Gap BUN (7-18) mg/dL Creatinine (0.6-1.3) mg/dL Est Cr Clr Drug Dosing mL/min Estimated GFR (MDRD) BUN/Creatinine Ratio Glucose (74-105) mg/dL Lactic Acid (0.5-2.2) mmol/L Calcium (8.4-10.2) mg/dl Total Bilirubin (0.2-1.0) mg/dL AST (10-42) IU/L ALT (10-60) IU/L Alkaline Phosphatase (42-121) IU/L Troponin I 0.03 H* (0.00-0.02) ng/ml C-Reactive Protein (0.0-1.3) mg/dL B-Natriuretic Peptide (0-100) pg/ml Total Protein (6.7-8.2) g/dl Albumin (3.2-5.5) g/dl Globulin Albumin/Globulin Ratio Meds: Medications Discontinued Medications Generic Name Dose Route Start Last Admin Trade Name Daja PRN Reason Stop Dose Admin Albuterol Confirm 06/12/18 17:58 Proventil Neb Soln Administered 06/12/18 17:59 Dose 10 mg .ROUTE .STK-MED ONE Albuterol/Ipratropium 3 ml 06/12/18 13:05 06/12/18 13:11 Duoneb 3.0-0.5 Mg/3 Ml NEB 06/12/18 13:06 3 ml ONETIME ONE Administration Albuterol/Ipratropium 3 ml 06/12/18 17:52 06/12/18 17:57 Duoneb 3.0-0.5 Mg/3 Ml NEB 06/12/18 17:53 3 ml ONETIME ONE Administration Albuterol/Ipratropium Confirm 06/12/18 18:00 Duoneb 3.0-0.5 Mg/3 Ml Administered 06/12/18 18:01 Dose 3 ml .ROUTE .STK-MED ONE Doxycycline Hyclate 100 mg 06/12/18 14:29 06/12/18 14:44 Vibramycin PO 06/12/18 14:30 100 mg ONETIME ONE Administration Doxycycline Hyclate Confirm 06/12/18 17:56 Vibramycin Administered 06/12/18 17:57 Dose 100 mg .ROUTE .STK-MED ONE Prednisone 40 mg 06/12/18 14:29 06/12/18 14:44 Prednisone PO 06/12/18 14:30 40 mg ONETIME ONE Administration - Radiology Interpretation Free Text/Narrative:: hest x-ray per radiology no acute infiltrate. Question some interstitial edema. - Re-Assessments/Exams Free Text/Narrative Re-Assessment/Exam: 06/12/18 patient was given a DuoNeb nebulizer with improvement of the expiratory wheezing as well as her subjective shortness of breath. eKG and chest x-ray are rather unremarkable. she does have a mildly elevated troponin at 0.03 although this does appear to be somewhat chronic. She is not actively having any chest pain and she really feels back to her self. Doxycycline 100 mg by mouth. Prednisone by mouth. patient was observed over the next 4 hours and her troponin was repeated. DuoNeb was repeated as well as she had some recurrence of her wheezing and shortness of breath. Her troponin remains at 0.03. She has no chest pain. We will discharge her home at this time. She is to return if she develops any chest pain weakness dizziness lightheadedness or syncope. Doxycycline prednisone and I will also start her using a nebulizer at home.She does not use a nebulizer on a regular basis although she does have a machine. This will help during times of exacerbation. She is comfortable with this plan and her questions are answered. Departure - Departure Time of Disposition: 17:55 Disposition: Home, Self-Care 01 Clinical Impression: COPD with exacerbation - Discharge Information Instructions: Chronic Obstructive Pulmonary Disease Exacerbation, [id number] Forms: ED Department Discharge Additional Instructions: Tylenol and or Ibuprofen as needed for pain fever. Rest the next few days. For the next 7 days. Use your nebulizer with albuterol 10 minutes before your advair twice daily. Albuterol 1 ampule every 4-6 hrs as needed for wheezing cough congestion with your nebulizer. RX given to the patient. Doxycycline 1 tablet twice daily for the next 7 days, 1 sent home from the ED for tonight and RX given to the patient. Return to the ED if new or worsening symptoms. Follow up with PCP in the next 7 days for recheck. - My Orders Last 24 Hours: My Active Orders 06/12/18 13:02 EKG 12 Lead [EKG Documentation Completion] [RC] URGENT 06/12/18 13:05 RT Aerosol Therapy [RC] ASDIRECTED 06/12/18 17:52 RT Aerosol Therapy [RC] ASDIRECTED - Assessment/Plan Last 24 Hours: My Active Orders 06/12/18 13:02 EKG 12 Lead [EKG Documentation Completion] [RC] URGENT 06/12/18 13:05 RT Aerosol Therapy [RC] ASDIRECTED 06/12/18 17:52 RT Aerosol Therapy [RC] ASDIRECTED Assessment:: COPD exacerbation. Elevated troponin, ? chronic stable on recheck in the ED with no CP and normal BNP. Plan: Tylenol and or Ibuprofen as needed for pain fever. Rest the next few days. For the next 7 days. Use your nebulizer with albuterol 10 minutes before your advair twice daily. Albuterol 1 ampule every 4-6 hrs as needed for wheezing cough congestion with your nebulizer. RX given to the patient. Doxycycline 1 tablet twice daily for the next 7 days, 1 sent home from the ED for tonight and RX given to the patient. Return to the ED if new or worsening symptoms. Follow up with PCP in the next 7 days for recheck.
[2018-06-12] MEDS ORDERED: Albuterol/Ipratropium 3.0-0.5 MG/3 ML Neb Soln NEB ONE ×2 (13:05→17:52)
[2018-06-12 14:03] LABS: ANION GAP 15.9
[2018-06-12] MEDS ORDERED: predniSONE 20 MG Tab PO ONE (14:29)
[2018-06-12 17:34] VITALS: BP 144/87
[2018-06-12] MEDS ORDERED: Doxycycline 100 MG Cap ONE (17:56)
[2018-06-12] MEDS ORDERED: Albuterol 0.083% 2.5 MG/3 ML Neb Soln ONE (17:58)
[2018-06-12] MEDS ORDERED: Albuterol/Ipratropium 3.0-0.5 MG/3 ML Neb Soln ONE (18:00)
== END 2018-06-12 18:25 | disposition home or self-care (01) ==
LOC: DL.ED 12:10
DX: J44.1 Chronic obstructive pulmonary disease with (acute) exacerbation (principal); R79.89 Other specified abnormal findings of blood chemistry; I13.2 Hypertensive heart and chronic kidney disease with heart failure and with stage 5 chronic kidney disease, or end stage renal disease; I50.9 Heart failure, unspecified; N18.6 End stage renal disease; Z79.82 Long term (current) use of aspirin; Z79.899 Other long term (current) drug therapy; Z88.5 Allergy status to narcotic agent; Z88.2 Allergy status to sulfonamides; Z88.8 Allergy status to other drugs, medicaments and biological substances; Z88.1 Allergy status to other antibiotic agents
CPT/HCPCS: 36415; 71046; 80053; 83605; 83880; 84484; 85025; 86140; 93005; 94640; 99284; A9270; J7613-GY; J7620-GY

== ENCOUNTER 2018-06-14 08:02 | Observation (INO) | payer MEDICARE ==
[2018-06-14] MEDS ORDERED: Sodium Chloride 0.9% 10 ML Syringe FLUSH PRN (08:28)
--- NOTE | 2018-06-14 08:28 | EDM.PDOC ---
ED HPI GENERAL MEDICAL PROBLEM - General Chief Complaint: Respiratory Problem Stated Complaint: CONGESTION [id number] Time Seen by Provider: 06/14/18 08:25 Source of Information: Reports: Patient, Family, Old Records, RN, RN Notes Reviewed History Limitations: Reports: No Limitations - History of Present Illness INITIAL COMMENTS - FREE TEXT/NARRATIVE: Pt presents to ER from home by POV with c/o shortness of breath. She was seen here on 06/12/18 for COPD exacerbation and was d/c'd home on PRN oxygen, nebulizer tx's, Prednisone, and Doxycycline. Pt states that despite the outpatient treatments, her breathing has progressively worsened. She denies fever or chills, chest pain, orthopnea, or edema. She has had some clear to white sputum production. 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, Other (see below) - Related Data Allergies Allergy/AdvReac Type Severity Reaction Status Date / Time codeine Allergy Cannot Verified 06/14/18 08:55 Remember pentazocine Allergy Cannot Verified 06/14/18 08:55 Remember sulfamethoxazole Allergy Cannot Verified 06/14/18 08:55 [From Bactrim] Remember trimethoprim [From Bactrim] Allergy Cannot Verified 06/14/18 08:55 Remember Home Meds: Home Meds Allopurinol 300 mg PO Q48H 03/17/15 [History] Aspirin [Halfprin] 81 mg PO BRK 03/17/15 [History] Calcitriol [Rocaltrol] 0.25 mcg PO DAILY 03/17/15 [History] Cholecalciferol (Vitamin D3) [Vitamin D3] 1,000 unit PO DAILY 03/17/15 [History] Formoterol/Mometasone [Dulera 100 MCG/5 MCG] 2 puff PO BID 03/17/15 [History] Omeprazole 20 mg PO DAILY 03/17/15 [History] Simvastatin [Zocor] 40 mg PO BEDTIME 03/17/15 [History] amLODIPine Besylate [Amlodipine Besylate] 10 mg PO DAILY 03/17/15 [History] Lisinopril [Prinivil] 5 mg PO DAILY 06/14/15 [History] Albuterol [Take Home: Albuterol 0.083%, 4 Neb Pack] 3 ml NEB Q4H PRN 06/18/15 [ History] Albuterol/Ipratropium [DuoNeb 3.0-0.5 MG/3 ML] 3 ml NEB QID PRN 06/18/15 [ History] Calcium Citrate/Vitamin D3 [Calcium Cit-Vit D 315-200] 1 tab PO DAILY 06/18/15 [ History] Furosemide [Lasix] 20 mg PO Q48H tablet 06/18/15 [Rx] Metoprolol Succinate [Toprol XL] 50 mg PO DAILY #30 tab.er 06/26/15 [Rx] Doxycycline [Vibramycin] 100 mg PO BID 06/14/18 [History] predniSONE [Prednisone] 20 mg PO DAILY 06/14/18 [History] Past Medical History HEENT History: Reports: Hard of Hearing, Impaired Vision Other HEENT History: Wears glasses while awake Cardiovascular History: Reports: Heart Failure, Hypertension Respiratory History: Reports: COPD, Pneumonia, Recurrent Genitourinary History: Reports: Chronic Renal Insuffiency, Renal Disease Other Genitourinary History: ESRD 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: Musculoskeletal History: Reports: Gout Endocrine/Metabolic History: Reports: Obesity/BMI 30+ - Infectious Disease History Infectious Disease History: Reports: Chicken Pox, Measles - Past Surgical History GI Surgical History: Reports: Cholecystectomy Female Surgical History: Reports: None Social & Family History - Family History HEENT: Reports: None GI: Reports: None Endocrine/Metabolic: Reports: Diabetes, type II Other Endocrine/Metabolic Family History: 2x sons Oncologic: Reports: Renal Other Oncologic Family History: son - Caffeine Use Caffeine Use: Reports: Coffee, Tea - Living Situation & Occupation Living situation: Reports: Alone (with family nearby) Occupation: Retired ED ROS GENERAL - Review of Systems Review Of Systems: ROS reveals no pertinent complaints other than HPI. ED EXAM, GENERAL - Physical Exam Exam: See Below Exam Limited By: No Limitations General Appearance: Alert, Mild Distress, Obese, Other (Elderly appearing female ) Eye Exam: Bilateral Eye: Normal Inspection Ears: Hearing Grossly Normal Nose: Normal Inspection, Normal Mucosa, No Blood Throat/Mouth: Normal Inspection, Normal Lips, Normal Voice, No Airway Compromise Head: Atraumatic, Normocephalic Neck: Normal Inspection, Full Range of Motion Respiratory/Chest: No Accessory Muscle Use, Chest Non-Tender, Decreased Breath Sounds, Wheezing (Course wheezing throughout B/L lung martinez.). No: Crackles, Rales, Rhonchi, Stridor Cardiovascular: Regular Rate, Rhythm, No Edema, No JVD GI/Abdominal: Normal Bowel Sounds, Soft, Non-Tender, No Distention, Other ( Benign obese abdomen) (Female) Exam: Deferred Rectal (Female) Exam: Deferred Back Exam: Normal Inspection Extremities: Normal Inspection, Normal Range of Motion, Non-Tender, Normal Capillary Refill, No Pedal Edema Neurological: Alert, Oriented, CN II-XII Intact, Normal Cognition, No Motor/ Sensory Deficits Psychiatric: Normal Affect, Normal Mood Skin Exam: Warm, Dry, Intact, Normal Color, No Rash Course - Vital Signs Last Recorded V/S: Last Vital Signs Temp 37.0 C 06/14/18 08:11 Pulse 93 06/14/18 08:11 Resp 24 H 06/14/18 08:11 BP 192/83 H 06/14/18 08:11 Pulse Ox 97 06/14/18 08:11 - Orders/Labs/Meds Orders: Active Orders 24 hr Category Date Time Status Peripheral IV Care [RC] . DIRECTED Care 06/14/18 08:29 Active RT Aerosol Therapy [RC] ASDIRECTED Care 06/14/18 08:30 Active CULTURE BLOOD [BC] Stat Lab 06/14/18 08:44 Results CULTURE BLOOD [BC] Stat Lab 06/14/18 09:16 Received Sodium Chloride 0.9% [Saline Flush] Med 06/14/18 08:28 Active 10 ml FLUSH ASDIRECTED PRN Blood Culture x2 Reflex Set [OM.PC] Stat Oth 06/14/18 08:29 Ordered Peripheral IV Insertion Adult [OM.PC] Stat Oth 06/14/18 08:28 Ordered Medication Orders Sodium Chloride (Saline Flush) 10 ml FLUSH ASDIRECTED PRN PRN Reason: Keep Vein Open Last Admin: 06/14/18 08:45 Dose: 10 ml Labs: Laboratory Tests 06/14/18 06/14/18 06/14/18 Range/Units 08:44 08:44 08:44 WBC 10.2 H (5.0-10.0) 10^3/uL RBC 3.95 L (4.2-5.4) 10^6/uL Hgb 13.0 (12.0-16.0) g/dL Hct 39.2 (37.0-47.0) % MCV 99.2 (80-100) fL MCH 32.9 (27.0-34.0) pg MCHC 33.2 (33.0-35.0) g/dL Plt Count 223 (150-450) 10^3/uL Neut % (Auto) 74.7 (42.2-75.2) % Lymph % (Auto) 12.9 L (20.5-50.1) % [place] % (Auto) 10.2 H (2-8) % Eos % (Auto) 1.8 (1.0-3.0) % Baso % (Auto) 0.4 (0.0-1.0) % Sodium 137 (135-145) mmol/L Potassium 4.2 (3.6-5.0) mmol/L Chloride 103 (101-111) mmol/L Carbon Dioxide 23.0 (21.0-31.0) mmol/L Anion Gap 15.2 BUN 34 H (7-18) mg/dL Creatinine 1.1 (0.6-1.3) mg/dL Est Cr Clr Drug Dosing 24.90 mL/min Estimated GFR (MDRD) 47 BUN/Creatinine Ratio 30.90 Glucose 214 H (74-105) mg/dL Lactic Acid 0.8 (0.5-2.2) mmol/L Calcium 8.7 (8.4-10.2) mg/dl Total Bilirubin 0.7 (0.2-1.0) mg/dL AST 30 (10-42) IU/L ALT 16 (10-60) IU/L Alkaline Phosphatase 55 (42-121) IU/L B-Natriuretic Peptide 31 (0-100) pg/ml Total Protein 7.7 (6.7-8.2) g/dl Albumin 3.9 (3.2-5.5) g/dl Globulin 3.8 Albumin/Globulin Ratio 1.03 Meds: Medications Generic Name Dose Route Start Last Admin Trade Name Freq PRN Reason Stop Dose Admin Sodium Chloride 10 ml 06/14/18 08:28 06/14/18 08:45 Saline Flush FLUSH 10 ml ASDIRECTED PRN Administration Keep Vein Open Discontinued Medications Generic Name Dose Route Start Last Admin Trade Name Freq PRN Reason Stop Dose Admin Albuterol/Ipratropium 3 ml 06/14/18 08:30 06/14/18 08:36 Duoneb 3.0-0.5 Mg/3 Ml NEB 06/14/18 08:31 3 ml ONETIME ONE Administration Methylprednisolone Sodium Succinate 125 mg 06/14/18 08:30 06/14/18 08:44 Solu-Medrol IVPUSH 06/14/18 08:31 125 mg ONETIME ONE Administration - Radiology Interpretation Free Text/Narrative:: Chest XR: no acute process per Rad. report. Departure - Departure Time of Disposition: 09:54 (admit to Dr. Soriano) Disposition: Refer to Observation Condition: Fair Clinical Impression: Acute exacerbation of chronic obstructive pulmonary disease (COPD) - Discharge Information *PRESCRIPTION DRUG MONITORING PROGRAM REVIEWED*: No *COPY OF PRESCRIPTION DRUG MONITORING REPORT IN PATIENT SAMI: No Forms: ED Department Discharge - My Orders Last 24 Hours: My Active Orders 06/14/18 08:28 Sodium Chloride 0.9% [Saline Flush] 10 ml FLUSH ASDIRECTED PRN Peripheral IV Insertion Adult [OM.PC] Stat 06/14/18 08:29 Peripheral IV Care [RC] . DIRECTED Blood Culture x2 Reflex Set [OM.PC] Stat 06/14/18 08:30 RT Aerosol Therapy [RC] ASDIRECTED 06/14/18 08:44 CULTURE BLOOD [BC] Stat 06/14/18 09:16 CULTURE BLOOD [BC] Stat - Assessment/Plan Last 24 Hours: My Active Orders 06/14/18 08:28 Sodium Chloride 0.9% [Saline Flush] 10 ml FLUSH ASDIRECTED PRN Peripheral IV Insertion Adult [OM.PC] Stat 06/14/18 08:29 Peripheral IV Care [RC] . DIRECTED Blood Culture x2 Reflex Set [OM.PC] Stat 06/14/18 08:30 RT Aerosol Therapy [RC] ASDIRECTED 06/14/18 08:44 CULTURE BLOOD [BC] Stat 06/14/18 09:16 CULTURE BLOOD [BC] Stat
[2018-06-14] MEDS ORDERED: Albuterol/Ipratropium 3.0-0.5 MG/3 ML Neb Soln NEB ONE (08:30)
[2018-06-14] MEDS ORDERED: methylPREDNISolone Sodium Succinate 125 MG/2 ML SDV IVPUSH ONE (08:30)
--- NOTE | 2018-06-14 08:56 | CR ---
Clinical history: 88-year-old female with cough, wheezing and hypoxia. Interpretation: Upright AP portable chest (rotated). Cardiac silhouette normal. No new cephalization of vascular flow, signs of alveolar edema or pleural effusion. No new lung mass, hilar lymphadenopathy or focal lobar pneumonia when compared 17 May 2018 exam. No atelectasis/collapse. No pneumothorax. Conclusion: No acute new cardiopulmonary abnormality.
[2018-06-14 09:13] LABS: ANION GAP 15.2
[2018-06-14] MEDS ORDERED: Ondansetron 4 MG Tab.DIS PO PRN (10:47)
[2018-06-14] MEDS ORDERED: Docusate Sodium 100 MG Cap PO PRN (10:47)
[2018-06-14] MEDS ORDERED: Magnesium Hydroxide 400 MG/5 ML Susp 30 ML Cup PO PRN (10:47)
[2018-06-14] MEDS ORDERED: Bisacodyl 5 MG Tab PO PRN (10:47)
[2018-06-14] MEDS ORDERED: Polyethylene Glycol 3350 Powder 17 GM Packet PO PRN (10:47)
[2018-06-14] MEDS ORDERED: Promethazine 25 MG Tab PO PRN (10:47)
[2018-06-14] MEDS ORDERED: Acetaminophen 325 MG Tab PO PRN (10:47)
[2018-06-14] MEDS ORDERED: Albuterol/Ipratropium 3.0-0.5 MG/3 ML Neb Soln NEB PRN (12:02)
[2018-06-14] MEDS ORDERED: Furosemide 20 MG Tab PO SCH (12:15)
[2018-06-14] MEDS ORDERED: Allopurinol 300 MG Tab PO SCH (12:15)
--- NOTE | 2018-06-14 12:23 | PCM.HP ---
H&P History of Present Illness - General Date of Service: 06/14/18 Admit Problem/Dx: Admission Diagnosis/Problem Admission Diagnosis/Problem Acute respiratory failure with hypoxia Source of Information: Patient, Old Records, Provider History Limitations: Reports: Altered Mental Status - History of Present Illness Initial Comments - Free Text/Narative: Ms. Kulkarni is an 88 y.o female with medical history significant for COPD with recurrent exacerbations, chronic respiratory failure with hypoxia requiring intermittent home O2 therapy, CHF, and CKD who presented to the ED with complaints of shortness of breath. Patient was seen on 06/12 for similar complaints and was sent home with Prednisone 20 mg PO daily and Doxycycline 100 mg PO BID. She returned to the ED with complaints of shortness of breath. However, when I interviewed her, patient reports she came to the ED due to intermittent abdominal pain. She is unable to characterize her abdominal pain. Also unable to state whether this pain radiates. States that she does not have abdominal pain now. Had a normal bowel movement this morning. Denies diarrhea, constipation, melena, or hematochezia. Reports non-productive cough but states that this is unchanged from baseline. Family unavailable to provide collateral information. Denies tobacco or alcohol use. No illicit drug use. Denies chest pain, rhinorrhea, fevers, chills, dysuria, or any other symptoms. - Related Data Allergies/Adverse Reactions: Allergies Allergy/AdvReac Type Severity Reaction Status Date / Time codeine Allergy Cannot Verified 06/14/18 08:55 Remember pentazocine Allergy Cannot Verified 06/14/18 08:55 Remember sulfamethoxazole Allergy Cannot Verified 06/14/18 08:55 [From Bactrim] Remember trimethoprim [From Bactrim] Allergy Cannot Verified 06/14/18 08:55 Remember Home Medications: Home Meds Allopurinol 300 mg PO Q48H 03/17/15 [History] Aspirin [Halfprin] 81 mg PO BRK 03/17/15 [History] Calcitriol [Rocaltrol] 0.25 mcg PO DAILY 03/17/15 [History] Cholecalciferol (Vitamin D3) [Vitamin D3] 1,000 unit PO DAILY 03/17/15 [History] Formoterol/Mometasone [Dulera 100 MCG/5 MCG] 2 puff PO BID 03/17/15 [History] Omeprazole 20 mg PO DAILY 03/17/15 [History] Simvastatin [Zocor] 40 mg PO BEDTIME 03/17/15 [History] amLODIPine Besylate [Amlodipine Besylate] 10 mg PO DAILY 03/17/15 [History] Lisinopril [Prinivil] 5 mg PO DAILY 06/14/15 [History] Albuterol [Take Home: Albuterol 0.083%, 4 Neb Pack] 3 ml NEB Q4H PRN 06/18/15 [ History] Albuterol/Ipratropium [DuoNeb 3.0-0.5 MG/3 ML] 3 ml NEB QID PRN 06/18/15 [ History] Calcium Citrate/Vitamin D3 [Calcium Cit-Vit D 315-200] 1 tab PO DAILY 06/18/15 [ History] Furosemide [Lasix] 20 mg PO Q48H tablet 06/18/15 [Rx] Metoprolol Succinate [Toprol XL] 50 mg PO DAILY #30 tab.er 06/26/15 [Rx] Doxycycline [Vibramycin] 100 mg PO BID 06/14/18 [History] Levothyroxine Sodium [Synthroid] 25 mcg PO ACBREAKFAST 06/14/18 [History] predniSONE [Prednisone] 20 mg PO DAILY 06/14/18 [History] Past Medical History HEENT History: Reports: Hard of Hearing, Impaired Vision Other HEENT History: Wears glasses while awake Cardiovascular History: Reports: Heart Failure, Hypertension Respiratory History: Reports: COPD, Pneumonia, Recurrent Genitourinary History: Reports: Chronic Renal Insuffiency, Renal Disease Other Genitourinary History: ESRD X3 [employer] History: Reports: Musculoskeletal History: Reports: Gout Endocrine/Metabolic History: Reports: Obesity/BMI 30+ - Infectious Disease History Infectious Disease History: Reports: Chicken Pox, Measles - Past Surgical History GI Surgical History: Reports: Cholecystectomy Female Surgical History: Reports: None Social & Family History - Family History HEENT: Reports: None GI: Reports: None Endocrine/Metabolic: Reports: Diabetes, type II Other Endocrine/Metabolic Family History: 2x sons Oncologic: Reports: Renal Other Oncologic Family History: son - Tobacco Use Smoking Status *Q: Never Smoker - Caffeine Use Caffeine Use: Reports: Coffee, Tea - Alcohol Use Alcohol Use History: No - Recreational Drug Use Recreational Drug Use: No - Living Situation & Occupation Living situation: Reports: Alone (with family nearby) Occupation: Retired H&P Review of Systems - Review of Systems: Review Of Systems: ROS reveals no pertinent complaints other than HPI. Exam - Exam Exam: See Below - Vital Signs Vital Signs: Last Vital Signs Temp 97.8 F 06/14/18 10:24 Pulse 86 06/14/18 10:24 Resp 20 06/14/18 10:24 BP 174/58 H 06/14/18 10:24 Pulse Ox 98 06/14/18 10:24 Weight: 180 lb 12.8 oz - Exam Quality Assessment: Supplemental Oxygen General: Alert, Other (Appears to have significant dementia vs acute change in mentation. ) HEENT: Conjunctiva Clear, EOMI, Posterior Pharynx Clear, Other (Hard of hearing. ), PERRLA Neck: Supple, Trachea Midline Lungs: Rhonchi (Diffuse) Cardiovascular: Regular Rate, Regular Rhythm GI/Abdominal Exam: Normal Bowel Sounds, Soft, Non-Tender, Other (abdominal adiposity with pannus) Extremities: Normal Inspection, Non-Tender, No Pedal Edema Peripheral Pulses: 2+: Radial (L), Radial (R), Dorsalis Pedis (L), Dorsalis Pedis (R) Skin: Warm, Dry, Intact Neurological: Cranial Nerves Intact Neuro Extensive - Mental Status: Alert, Normal Mood/Affect, Other (Oriented to self and location, does not recall year or name of president. ) Psychiatric: Alert, Normal Affect, Normal Mood - Patient Data Lab Results Last 24 hrs: Laboratory Results - last 24 hr 06/14/18 06/14/18 06/14/18 Range/Units 08:44 08:44 08:44 WBC 10.2 H (5.0-10.0) 10^3/uL RBC 3.95 L (4.2-5.4) 10^6/uL Hgb 13.0 (12.0-16.0) g/dL Hct 39.2 (37.0-47.0) % MCV 99.2 (80-100) fL MCH 32.9 (27.0-34.0) pg MCHC 33.2 (33.0-35.0) g/dL Plt Count 223 (150-450) 10^3/uL Neut % (Auto) 74.7 (42.2-75.2) % Lymph % (Auto) 12.9 L (20.5-50.1) % [place] % (Auto) 10.2 H (2-8) % Eos % (Auto) 1.8 (1.0-3.0) % Baso % (Auto) 0.4 (0.0-1.0) % Sodium 137 (135-145) mmol/L Potassium 4.2 (3.6-5.0) mmol/L Chloride 103 (101-111) mmol/L Carbon Dioxide 23.0 (21.0-31.0) mmol/L Anion Gap 15.2 BUN 34 H (7-18) mg/dL Creatinine 1.1 (0.6-1.3) mg/dL Est Cr Clr Drug Dosing 24.90 mL/min Estimated GFR (MDRD) 47 BUN/Creatinine Ratio 30.90 Glucose 214 H (74-105) mg/dL POC Glucose (83-110) mg/dl Lactic Acid 0.8 (0.5-2.2) mmol/L Calcium 8.7 (8.4-10.2) mg/dl Total Bilirubin 0.7 (0.2-1.0) mg/dL AST 30 (10-42) IU/L ALT 16 (10-60) IU/L Alkaline Phosphatase 55 (42-121) IU/L B-Natriuretic Peptide 31 (0-100) pg/ml Total Protein 7.7 (6.7-8.2) g/dl Albumin 3.9 (3.2-5.5) g/dl Globulin 3.8 Albumin/Globulin Ratio 1.03 /05/03 Range/Units 11:30 WBC (5.0-10.0) 10^3/uL RBC (4.2-5.4) 10^6/uL Hgb (12.0-16.0) g/dL Hct (37.0-47.0) % MCV (80-100) fL MCH (27.0-34.0) pg MCHC (33.0-35.0) g/dL Plt Count (150-450) 10^3/uL Neut % (Auto) (42.2-75.2) % Lymph % (Auto) (20.5-50.1) % [place] % (Auto) (2-8) % Eos % (Auto) (1.0-3.0) % Baso % (Auto) (0.0-1.0) % Sodium (135-145) mmol/L Potassium (3.6-5.0) mmol/L Chloride (101-111) mmol/L Carbon Dioxide (21.0-31.0) mmol/L Anion Gap BUN (7-18) mg/dL Creatinine (0.6-1.3) mg/dL Est Cr Clr Drug Dosing mL/min Estimated GFR (MDRD) BUN/Creatinine Ratio Glucose (74-105) mg/dL POC Glucose 220 H (83-110) mg/dl Lactic Acid (0.5-2.2) mmol/L Calcium (8.4-10.2) mg/dl Total Bilirubin (0.2-1.0) mg/dL AST (10-42) IU/L ALT (10-60) IU/L Alkaline Phosphatase (42-121) IU/L B-Natriuretic Peptide (0-100) pg/ml Total Protein (6.7-8.2) g/dl Albumin (3.2-5.5) g/dl Globulin Albumin/Globulin Ratio Result Diagrams: 06/14/18 08:44 06/14/18 08:44 Zaki Results Last 24 hrs: Microbiology 06/14/18 08:44 Anaerobic Blood Culture - Final Blood - Venous - Problem List (1) Acute respiratory failure with hypoxia SNOMED Code(s): 61531617, 885831459 ICD Code: J96.01 - ACUTE RESPIRATORY FAILURE WITH HYPOXIA Status: Acute Current Visit: Yes (2) Obesity (BMI 35.0-39.9 without comorbidity) SNOMED Code(s): 876094933, 407933348 ICD Code: E66.9 - OBESITY, UNSPECIFIED Status: Acute Current Visit: Yes (3) Acute exacerbation of chronic obstructive pulmonary disease (COPD) SNOMED Code(s): 004647102 ICD Code: J44.1 - CHRONIC OBSTRUCTIVE PULMONARY DISEASE W (ACUTE) EXACERBATION Status: Acute Current Visit: No (4) Chronic CHF (congestive heart failure) SNOMED Code(s): 96129099 ICD Code: I50.9 - HEART FAILURE, UNSPECIFIED Status: Acute Current Visit : No Qualifiers: Heart failure type: unspecified Qualified Code(s): I50.9 - Heart failure, unspecified (5) Hyperglycemia SNOMED Code(s): 99478581 ICD Code: R73.9 - HYPERGLYCEMIA, UNSPECIFIED Status: Acute Current Visit : Yes Problem List Initiated/Reviewed/Updated: Yes Orders Last 24hrs: Active Orders 24 hr Category Date Time Status Patient Status [ADT] Routine ADT 06/14/18 10:47 Active Blood Glucose Check, Bedside [RC] QIDACANDBED Care 06/14/18 10:47 Active Cardiac Monitoring [RC] CONTINUOUS Care 06/14/18 10:50 Active Height and Weight [RC] UPON Care 06/14/18 10:47 Active Intake and Output [RC] QSHIFT Care 06/14/18 10:50 Active Notify Provider Vital Signs [RC] ASDIRECTED Care 06/14/18 10:50 Active Oxygen Therapy [RC] PRN Care 06/14/18 10:47 Active Peripheral IV Care [RC] . DIRECTED Care 06/14/18 08:29 Active RT Aerosol Therapy [RC] ASDIRECTED Care 06/14/18 08:30 Active [place] [RC] ASDIRECTED Care 06/14/18 10:47 Active VTE/DVT Education [RC] PER UNIT ROUTINE Care 06/14/18 10:47 Active Vital Signs [RC] Q4H Care 06/14/18 10:47 Active 2 Gram Sodium Diet [DIET] Diet 06/14/18 Lunch Active BASIC METABOLIC PANEL,BMP [CHEM] AM Lab 06/15/18 05:11 Ordered CBC W/O DIFF,HEMOGRAM [HEME] AM Lab 06/15/18 05:11 Ordered CULTURE BLOOD [BC] Stat Lab 06/14/18 08:44 Results CULTURE BLOOD [BC] Stat Lab 06/14/18 09:16 Received Acetaminophen [Tylenol] Med 06/14/18 10:47 Active 650 mg PO Q4H PRN Albuterol [Proventil Neb Soln] Med 06/14/18 12:02 Ordered 3 ml NEB Q4H PRN Albuterol/Ipratropium [DuoNeb 3.0-0.5 MG/3 ML] Med 06/14/18 12:02 Ordered 3 ml NEB QID PRN Allopurinol [Zyloprim] Med 06/14/18 12:15 Ordered 300 mg PO Q48H Aspirin [Halfprin] Med 06/15/18 08:00 Ordered 81 mg PO BRK Bisacodyl [Dulcolax] Med 06/14/18 10:47 Active 5 mg PO DAILY PRN Calcitriol [Rocaltrol] Med 06/15/18 09:00 Ordered 0.25 mcg PO DAILY Calcium Citrate/Vitamin D3 [Calcium Cit-Vit D 315-200] Med 06/15/18 09:00 Ordered 1 tab PO DAILY Cholecalciferol (Vitamin D3) [Vitamin D3] Med 06/15/18 09:00 Ordered 1,000 unit PO DAILY Docusate Sodium [Colace] Med 06/14/18 10:47 Active 100 mg PO BID PRN Docusate Sodium/Sennosides [Senna Plus] Med 06/14/18 10:47 Active 1 tab PO BEDTIME PRN Doxycycline [Vibramycin] Med 06/14/18 21:00 Ordered 100 mg PO BID Furosemide [Lasix] Med 06/14/18 12:15 Ordered 20 mg PO Q48H Heparin Sodium Med 06/14/18 14:00 Active 5,000 units SUBCUT Q8HR Lisinopril [Prinivil] Med 06/15/18 09:00 Ordered 5 mg PO DAILY Magnesium Hydroxide [Milk of Magnesia] Med 06/14/18 10:47 Active 30 ml PO Q12H PRN Metoprolol Succinate [Toprol XL] Med 06/15/18 09:00 Ordered 50 mg PO DAILY Mometasone/Formoterol [Dulera 100-5 MCG] Med 06/14/18 21:00 Ordered 2 puff IH BID Omeprazole Med 06/15/18 09:00 Ordered 20 mg PO DAILY Ondansetron [Zofran ODT] Med 06/14/18 10:47 Active 4 mg PO Q6H PRN Polyethylene Glycol 3350 [MiraLAX] Med 06/14/18 10:47 Active 17 gm PO DAILY PRN Promethazine [Phenergan] Med 06/14/18 10:47 Active 25 mg PO Q6H PRN Simvastatin [Zocor] Med 06/14/18 21:00 Ordered 40 mg PO BEDTIME Sodium Chloride 0.9% [Saline Flush] Med 06/14/18 08:28 Active 10 ml FLUSH ASDIRECTED PRN amLODIPine Besylate [Amlodipine Besylate] Med 06/15/18 09:00 Ordered 10 mg PO DAILY predniSONE Med 06/15/18 09:00 Ordered 40 mg PO DAILY Blood Culture x2 Reflex Set [OM.PC] Stat Oth 06/14/18 08:29 Ordered Peripheral IV Insertion Adult [OM.PC] Stat Oth 06/14/18 08:28 Ordered Resuscitation Status Routine Resus Stat 06/14/18 10:47 Ordered Medication Orders Acetaminophen (Tylenol) 650 mg PO Q4H PRN PRN Reason: Pain Albuterol (Proventil Neb Soln) mg NEB Q4H PRN PRN Reason: Shortness of Breath Albuterol/Ipratropium (Duoneb 3.0-0.5 Mg/3 Ml) 3 ml NEB QID PRN PRN Reason: Shortness of Breath Allopurinol (Zyloprim) 300 mg PO Q48H [facility] Aspirin (Halfprin) 81 mg PO BRK [facility] Bisacodyl (Dulcolax) 5 mg PO DAILY PRN PRN Reason: Constipation Calcitriol (Rocaltrol) 0.25 mcg PO DAILY [facility] Docusate Sodium (Colace) 100 mg PO BID PRN PRN Reason: Constipation Doxycycline Hyclate (Vibramycin) 100 mg PO BID [facility] Furosemide (Lasix) 20 mg PO Q48H [facility] Heparin Sodium (Porcine) (Heparin Sodium) 5,000 units SUBCUT Q8HR [facility] Lisinopril (Prinivil) 5 mg PO DAILY [facility] Magnesium Hydroxide (Milk Of Magnesia) 30 ml PO Q12H PRN PRN Reason: Constipation Metoprolol Succinate (Toprol Xl) 50 mg PO DAILY [facility] Mometasone Furoate/Formoterol Fumar (Dulera 100-5 Mcg) 2 puff IH BID [facility] Non-Formulary Medication (Amlodipine Besylate [Amlodipine Besylate]) 10 mg PO DAILY [facility] Non-Formulary Medication (Calcium Citrate/Vitamin D3 [Calcium Cit-Vit D 315-200] ) 1 tab PO DAILY [facility] Non-Formulary Medication (Cholecalciferol (Vitamin D3) [Vitamin D3]) 1,000 unit PO DAILY [facility] Omeprazole (Omeprazole) 20 mg PO DAILY [facility] Ondansetron HCl (Zofran Odt) 4 mg PO Q6H PRN PRN Reason: nausea, able to take PO Polyethylene Glycol (Miralax) 17 gm PO DAILY PRN PRN Reason: Constipation Prednisone (Prednisone) 40 mg PO DAILY [facility] Promethazine HCl (Phenergan) 25 mg PO Q6H PRN PRN Reason: nausea, able to take PO Senna/Docusate Sodium (Senna Plus) 1 tab PO BEDTIME PRN PRN Reason: Constipation Simvastatin (Zocor) 40 mg PO BEDTIME [facility] Sodium Chloride (Saline Flush) 10 ml FLUSH ASDIRECTED PRN PRN Reason: Keep Vein Open Last Admin: 06/14/18 08:45 Dose: 10 ml Assessment/Plan Comment:: Acute respiratory failure with hypoxia + Acute COPD exacerbation: patient presented with SpO2 of 84% on room air. She has diffuse rhonchi. Tried prednisone and doxycycline at home. - Refer for observation - Increase prednisone to 40 mg PO daily - Continue doxycycline - Continue inhaled and nebulized breathing treatments. - Supplemental O2, titrate to SpO2 of 88-92% - Tele monitoring - #CHF: does not appear to be in exacerbation - Supplemental O2 as above - Continue lasix - Continue other home medications. 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 - Monitor renal function - Avoid nephrotoxins. #Dementia vs Acute encephalopathy: - attempted to obtain collateral from family but unavailable. - Delirium prevention precautions. - If worsens or not improving, will pursue further work up. #Hyperglycemia: BG of 224. No history of DM. - Accuchecks - SSI with hypoglycemia protocol. DVT PPx: Heparin GI: Cardiac diet Code status: Patient does not seem to understand discussion about code status. Full code for now until can be verified with family.
[2018-06-14] MEDS: Insulin Lispro 100 Units/ML 3 ML Vial SUBCUT SCH ×3 (13:07→21:30)
[2018-06-14] MEDS: Heparin Sodium 5,000 Units/ML Vial SUBCUT SCH ×2 (13:28→21:29)
[2018-06-14] MEDS ORDERED: Albuterol 0.083% 2.5 MG/3 ML Neb Soln NEB PRN (15:00)
[2018-06-14] MEDS ORDERED: Insulin Lispro 100 Units/ML 3 ML Vial SUBCUT ONE ×2 (21:15→22:53)
[2018-06-14] MEDS: DOXYCYCLINE 100 MG PO SCH (21:28)
[2018-06-14] MEDS: Simvastatin 40 MG Tab **OWN MED PO SCH (21:29)
[2018-06-14] MEDS: Metoprolol Succinate 25 MG Tab.ER **OWN MED PO SCH (21:29)
[2018-06-14] MEDS: Formoterol/Mometasone 100-5 MCG 8.8 GM Inhaler IH SCH (21:30)
[2018-06-14] MEDS: Albuterol/Ipratropium 3.0-0.5 MG/3 ML Neb Soln NEB SCH ×2 (21:30→23:35)
[2018-06-15] MEDS: Albuterol/Ipratropium 3.0-0.5 MG/3 ML Neb Soln NEB SCH ×6 (03:01→23:03)
[2018-06-15] MEDS: Omeprazole 20 MG Cap.CR **OWN MED PO SCH ×2 (05:44→07:28)
[2018-06-15] MEDS: Heparin Sodium 5,000 Units/ML Vial SUBCUT SCH ×3 (05:44→21:31)
[2018-06-15] MEDS: Levothyroxine 25 MCG Tab **OWN MED PO SCH (05:45)
[2018-06-15 06:57] LABS: ANION GAP 15.6
[2018-06-15] MEDS: Insulin Lispro 100 Units/ML 3 ML Vial SUBCUT SCH ×4 (08:29→21:33)
[2018-06-15] MEDS: Metoprolol Succinate 25 MG Tab.ER **OWN MED PO SCH ×2 (08:31→21:35)
[2018-06-15] MEDS: PREDNISONE 20 MG PO SCH (08:31)
[2018-06-15] MEDS: Aspirin 81 MG Tab.EC **OWN MED PO SCH (08:32)
[2018-06-15] MEDS: Furosemide 20 MG Tab **OWN MED PO SCH (08:32)
[2018-06-15] MEDS: DOXYCYCLINE 100 MG PO SCH ×2 (08:33→21:34)
[2018-06-15] MEDS: Allopurinol 100 MG Tab **OWN MED PO SCH (08:33)
[2018-06-15] MEDS: CHOLECALCIFEROL PO SCH (08:34)
[2018-06-15] MEDS: Formoterol/Mometasone 100-5 MCG 8.8 GM Inhaler IH SCH ×2 (08:36→21:31)
[2018-06-15] MEDS ORDERED: Lisinopril 5 MG Tab PO SCH (09:00)
[2018-06-15] MEDS ORDERED: CALCITRIOL 0.25 MCG PO SCH (09:00)
[2018-06-15] MEDS ORDERED: Non-Formulary Medication 1 Each (Amlodipine Besylate [Amlodipine Besylate] 10 MG) PO SCH (09:00)
[2018-06-15] MEDS ORDERED: Calcitriol 0.25 MCG Cap PO SCH (09:00)
[2018-06-15] MEDS ORDERED: Metoprolol Succinate 50 MG Tab.ER PO SCH (09:00)
--- NOTE | 2018-06-15 11:44 | PCM.PN ---
- General Info Date of Service: 06/15/18 Admission Dx/Problem (Free Text): Admission Diagnosis/Problem Admission Diagnosis/Problem Acute respiratory failure with hypoxia Subjective Update: No acute events overnight. Daughter reports that patient intermittently gets confused. Not previously diagnosed with dementia. Daughter reports that she still hears patient wheezing. Patient states that she still has cough and feels like she has mucus but cannot expectorate anything. Denies fevers, chills, chest pain, n/v/d/c. No other concerns. - Review of Systems General: Reports: No Symptoms HEENT: Reports: No Symptoms Pulmonary: Reports: Shortness of Breath, Cough, Wheezing Cardiovascular: Reports: No Symptoms Gastrointestinal: Reports: No Symptoms Genitourinary: Reports: No Symptoms Musculoskeletal: Reports: No Symptoms Skin: Reports: No Symptoms Neurological: Reports: No Symptoms Psychiatric: Reports: No Symptoms - Patient Data Vitals - Most Recent: Last Vital Signs Temp 98.3 F 06/15/18 07:54 Pulse 71 06/15/18 07:54 Resp 20 06/15/18 07:54 BP 167/58 H 06/15/18 07:54 Pulse Ox 93 L 06/15/18 11:30 Weight - Most Recent: 181 lb 6 oz I&O - Last 24 Hours: Intake & Output 06/14/18 06/15/18 06/15/18 22:59 06:59 14:59 Intake Total 320 500 320 Output Total 600 Balance -280 500 320 Lab Results Last 24 Hours: Laboratory Results - last 24 hr 06/14/18 06/14/18 06/14/18 Range/Units 16:38 20:39 22:23 WBC (5.0-10.0) 10^3/uL RBC (4.2-5.4) 10^6/uL Hgb (12.0-16.0) g/dL Hct (37.0-47.0) % MCV (80-100) fL MCH (27.0-34.0) pg MCHC (33.0-35.0) g/dL Plt Count (150-450) 10^3/uL Sodium (135-145) mmol/L Potassium (3.6-5.0) mmol/L Chloride (101-111) mmol/L Carbon Dioxide (21.0-31.0) mmol/L Anion Gap BUN (7-18) mg/dL Creatinine (0.6-1.3) mg/dL Est Cr Clr Drug Dosing mL/min Estimated GFR (MDRD) Glucose (74-105) mg/dL POC Glucose 308 H 442 H* 355 H (83-110) mg/dl Calcium (8.4-10.2) mg/dl 06/14/18 06/15/18 06/15/18 Range/Units 22:50 01:19 06:05 WBC 7.6 (5.0-10.0) 10^3/uL RBC 3.58 L (4.2-5.4) 10^6/uL Hgb 11.7 L (12.0-16.0) g/dL Hct 35.6 L (37.0-47.0) % MCV 99.4 (80-100) fL MCH 32.7 (27.0-34.0) pg MCHC 32.9 L (33.0-35.0) g/dL Plt Count 230 (150-450) 10^3/uL Sodium (135-145) mmol/L Potassium (3.6-5.0) mmol/L Chloride (101-111) mmol/L Carbon Dioxide (21.0-31.0) mmol/L Anion Gap BUN (7-18) mg/dL Creatinine (0.6-1.3) mg/dL Est Cr Clr Drug Dosing mL/min Estimated GFR (MDRD) Glucose (74-105) mg/dL POC Glucose 367 H 246 H (83-110) mg/dl Calcium (8.4-10.2) mg/dl 06/15/18 06/15/18 06/15/18 Range/Units 06:05 07:55 11:01 WBC (5.0-10.0) 10^3/uL RBC (4.2-5.4) 10^6/uL Hgb (12.0-16.0) g/dL Hct (37.0-47.0) % MCV (80-100) fL MCH (27.0-34.0) pg MCHC (33.0-35.0) g/dL Plt Count (150-450) 10^3/uL Sodium 136 (135-145) mmol/L Potassium 4.6 (3.6-5.0) mmol/L Chloride 99 L (101-111) mmol/L Carbon Dioxide 26.0 (21.0-31.0) mmol/L Anion Gap 15.6 BUN 39 H (7-18) mg/dL Creatinine 1.1 (0.6-1.3) mg/dL Est Cr Clr Drug Dosing 24.90 mL/min Estimated GFR (MDRD) 47 Glucose 214 H (74-105) mg/dL POC Glucose 223 H 184 H (83-110) mg/dl Calcium 9.0 (8.4-10.2) mg/dl Zaki Results Last 24 Hours: Microbiology 06/15/18 10:40 Influenza Type A Antigen Screen - Final Nasal, Right NEGATIVE INFLUENZA A VIRUS AG Influenza Type B Antigen Screen - Final NEGATIVE INFLUENZA B VIRUS AG 06/14/18 09:16 Aerobic Blood Culture - Preliminary Blood - Venous - Lab Draw NO GROWTH AFTER 1 DAY Anaerobic Blood Culture - Preliminary NO GROWTH AFTER 1 DAY 06/14/18 08:44 Aerobic Blood Culture - Preliminary Blood - Venous NO GROWTH AFTER 1 DAY Anaerobic Blood Culture - Final Med Orders - Current: Current Medications Acetaminophen (Tylenol) 650 mg PO Q4H PRN PRN Reason: Pain Last Admin: 06/15/18 01:28 Dose: 650 mg Albuterol (Proventil Neb Soln) 2.5 mg NEB Q4HRRT PRN PRN Reason: Shortness of Breath Albuterol/Ipratropium (Duoneb 3.0-0.5 Mg/3 Ml) [address] [facility] Last Admin: 06/15/18 11:28 Dose: 3 ml Bisacodyl (Dulcolax) 5 mg PO DAILY PRN PRN Reason: Constipation Docusate Sodium (Colace) 100 mg PO BID PRN PRN Reason: Constipation Guaifenesin (Mucinex) [address] [facility] Heparin Sodium (Porcine) (Heparin Sodium) 5,[address] [facility] Last Admin: 06/15/18 05:44 Dose: 5,000 units Insulin Human Lispro (Humalog) [address] [facility]; Protocol Last Admin: 06/15/18 08:29 Dose: 2 units Magnesium Hydroxide (Milk Of Magnesia) 30 ml PO Q12H PRN PRN Reason: Constipation Mometasone Furoate/Formoterol Fumar (Dulera 100-5 Mcg) [address] [facility] Last Admin: 06/15/18 08:36 Dose: 2 puff Ondansetron HCl (Zofran Odt) 4 mg PO Q6H PRN PRN Reason: nausea, able to take PO Aspirin 81 Mg Tab.Ec (Own Med) [address] [facility] Last Admin: 06/15/18 08:32 Dose: 1 each Cholecalciferol Vitamin D3 1,000 Unit Tab Own Med [address] [facility] Last Admin: 06/15/18 08:34 Dose: 1 each Doxycycline 100 Mg (Tab Own Med) [address] [facility] Stop: 06/20/18 09:01 Last Admin: 06/15/18 08:33 Dose: 1 each Omeprazole 20 Mg Cap (.Cr Own Med) 1 each PO DAILY@0700 [facility] Last Admin: 06/15/18 07:28 Dose: Not Given Prednisone 20 Mg Tab (Own Med) [address] [facility] Stop: 06/18/18 09:01 Last Admin: 06/15/18 08:31 Dose: 1 each Simvastatin 40 Mg (Tab Own Med) [address] [facility] Last Admin: 06/14/18 21:29 Dose: 1 each Furosemide 20 Mg Tab (Own Med) [address] [facility] Last Admin: 06/15/18 08:32 Dose: 1 each Metoprolol Succinate 25 Mg Tab.Er Own Med [address] [facility] Last Admin: 06/15/18 08:31 Dose: 1 each Levothyroxine 25 Mcg (Tab Own Med) [address] [facility] Last Admin: 06/15/18 05:45 Dose: 1 each Calcitriol 0.25 Mcg (Cap Own Med) [address] [facility] Last Admin: 06/15/18 08:35 Dose: 1 each Allopurinol 100 Mg (Tab Own Med) [address] [facility] Last Admin: 06/15/18 08:33 Dose: 1 each Polyethylene Glycol (Miralax) 17 gm PO DAILY PRN PRN Reason: Constipation Promethazine HCl (Phenergan) 25 mg PO Q6H PRN PRN Reason: nausea, able to take PO Senna/Docusate Sodium (Senna Plus) 1 tab PO BEDTIME PRN PRN Reason: Constipation Sodium Chloride (Saline Flush) 10 ml FLUSH ASDIRECTED PRN PRN Reason: Keep Vein Open Last Admin: 06/14/18 08:45 Dose: 10 ml Discontinued Medications Albuterol/Ipratropium (Duoneb 3.0-0.5 Mg/3 Ml) 3 ml NEB ONETIME ONE Stop: 06/14/18 08:31 Last Admin: 06/14/18 08:36 Dose: 3 ml Albuterol/Ipratropium (Duoneb 3.0-0.5 Mg/3 Ml) 3 ml NEB QIDRT PRN PRN Reason: Shortness of Breath Last Admin: 06/14/18 14:20 Dose: 3 ml Allopurinol (Zyloprim) [address] [facility] Last Admin: 06/14/18 14:42 Dose: Not Given Calcitriol (Rocaltrol) 0.[address] [facility] Furosemide (Lasix) [address] [facility] Last Admin: 06/14/18 14:42 Dose: Not Given Insulin Human Lispro (Humalog) 10 unit SUBCUT ONETIME ONE Stop: 06/14/18 21:16 Last Admin: 06/14/18 21:30 Dose: 10 units Insulin Human Lispro (Humalog) 0 unit SUBCUT ONETIME ONE Stop: 06/14/18 22:54 Last Admin: 06/14/18 23:15 Dose: 10 units Lisinopril (Prinivil) [address] [facility] Methylprednisolone Sodium Succinate (Solu-Medrol) 125 mg IVPUSH ONETIME ONE Stop: 06/14/18 08:31 Last Admin: 06/14/18 08:44 Dose: 125 mg Metoprolol Succinate (Toprol Xl) [address] [facility] Non-Formulary Medication (Amlodipine Besylate [Amlodipine Besylate]) [address] [facility] Non-Formulary Medication (Calcium Citrate/Vitamin D3 [Calcium Cit-Vit D 315-200] ) [address] [facility] - Exam Quality Assessment: Supplemental Oxygen (1L via NC) General: Alert, Oriented, Cooperative, No Acute Distress HEENT: Pupils Equal, Pupils Reactive, Mucous Membr. Moist/[place] Neck: Supple Lungs: Wheezing, Other (Shallow breaths) Cardiovascular: Regular Rate, Regular Rhythm GI/Abdominal Exam: Normal Bowel Sounds, Soft, Non-Tender, Other (Abdominal adiposity) Extremities: Normal Inspection, Non-Tender, No Pedal Edema Peripheral Pulses: 2+: Radial (L), Radial (R), Dorsalis Pedis (L), Dorsalis Pedis (R) Skin: Warm, Dry, Intact Neurological: No New Focal Deficit Psy/Mental Status: Alert, Normal Affect, Normal Mood - Problem List & Annotations (1) Acute respiratory failure with hypoxia SNOMED Code(s): 31370742, 729881562 Code(s): J96.01 - ACUTE RESPIRATORY FAILURE WITH HYPOXIA Status: Acute Current Visit: Yes (2) Obesity (BMI 35.0-39.9 without comorbidity) SNOMED Code(s): 522773828, 882347630 Code(s): E66.9 - OBESITY, UNSPECIFIED Status: Acute Current Visit: Yes (3) Acute exacerbation of chronic obstructive pulmonary disease (COPD) SNOMED Code(s): 036502414 Code(s): J44.1 - CHRONIC OBSTRUCTIVE PULMONARY DISEASE W (ACUTE) EXACERBATION Status: Acute Current Visit: No (4) Chronic CHF (congestive heart failure) SNOMED Code(s): 42757536 Code(s): I50.9 - HEART FAILURE, UNSPECIFIED Status: Acute Current Visit: No Qualifiers: Heart failure type: unspecified Qualified Code(s): I50.9 - Heart failure, unspecified (5) Hyperglycemia SNOMED Code(s): 26796752 Code(s): R73.9 - HYPERGLYCEMIA, UNSPECIFIED Status: Acute Current Visit: Yes - Problem List Review Problem List Initiated/Reviewed/Updated: Yes - My Orders Last 24 Hours: My Active Orders 06/14/18 10:47 Patient Status [ADT] Routine Blood Glucose Check, Bedside [RC] QIDACANDBED Oxygen Therapy [RC] PRN Up ad [place] [RC] 09,21 VTE/DVT Education [RC] 1400 Vital Signs [RC] 07,11,15,19,23,03 Acetaminophen [Tylenol] 650 mg PO Q4H PRN Bisacodyl [Dulcolax] 5 mg PO DAILY PRN Docusate Sodium [Colace] 100 mg PO BID PRN Docusate Sodium/Sennosides [Senna Plus] 1 tab PO BEDTIME PRN Magnesium Hydroxide [Milk of Magnesia] 30 ml PO Q12H PRN Ondansetron [Zofran ODT] 4 mg PO Q6H PRN Polyethylene Glycol 3350 [MiraLAX] 17 gm PO DAILY PRN Promethazine [Phenergan] 25 mg PO Q6H PRN Resuscitation Status Routine 06/14/18 10:50 Cardiac Monitoring [RC] 08,20 Intake and Output [RC] QSHIFT Notify Provider Vital Signs [RC] 08,06/14/18 12:45 Insulin Lispro [HumaLOG] See Protocol SUBCUT QIDACANDBED 06/14/18 14:00 Heparin Sodium 5,000 units SUBCUT Q8HR 06/14/18 14:25 RT Chest Physiotherapy [RC] 09,21 RT Incentive Spirometry [RC] Q2HWA 06/14/18 15:00 Albuterol [Proventil Neb Soln] 2.5 mg NEB Q4HRRT PRN 06/14/18 18:18 RT Aerosol Therapy [RC] 20,00,04,08,12,16 06/14/18 20:00 Albuterol/Ipratropium [DuoNeb 3.0-0.5 MG/3 ML] 3 ml NEB Q4HRRT 06/14/18 21:00 Mometasone/Formoterol [Dulera 100-5 MCG] 2 puff IH BID Patient's Own Medication [Ptom] 1 each PO BEDTIME Patient's Own Medication [Ptom] 1 each PO BID Patient's Own Medication [Ptom] 1 each PO BID 06/15/18 06:00 Patient's Own Medication [Ptom] 1 each PO ACBREAKFAST 06/15/18 07:00 Patient's Own Medication [Ptom] 1 each PO DAILY@0700 06/15/18 08:00 Patient's Own Medication [Ptom] 1 each PO BRK 06/15/18 09:00 Patient's Own Medication [Ptom] 0 each PO DAILY Patient's Own Medication [Ptom] 0 each PO SEECOMMENT Patient's Own Medication [Ptom] 1 each PO DAILY Patient's Own Medication [Ptom] 1 each PO DAILY Patient's Own Medication [Ptom] 1 each PO DAILY 06/15/18 14:00 guaiFENesin [Mucinex] 600 mg PO TID 06/15/18 Breakfast 2 Gram Sodium Diet [DIET] Consistent Carbohydrate Diet [DIET] - Plan Plan:: Acute respiratory failure with hypoxia + Acute COPD exacerbation: patient presented with SpO2 of 84% on room air. She has diffuse rhonchi. Tried prednisone and doxycycline at home. - Continue prednisone to 40 mg PO daily - Continue doxycycline - Continue inhaled and nebulized breathing treatments. - Supplemental O2, titrate to SpO2 of 88-92% - Tele monitoring #Cough: - Influenza negative this morning. - Afebrile and no sputum production. - Start mucinex #CHF: does not appear to be in exacerbation - Supplemental O2 as above - Continue lasix - Continue other home medications. 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 - Monitor renal function - Avoid nephrotoxins. #Dementia vs Acute encephalopathy: - attempted to obtain collateral from family but unavailable. - Delirium prevention precautions. - If worsens or not improving, will pursue further work up. #Hyperglycemia: BG of 224. No history of DM. - Accuchecks - SSI with hypoglycemia protocol. DVT PPx: Heparin GI: Cardiac diet Code status: Patient does not seem to understand discussion about code status. Full code for now until can be verified with family.
[2018-06-15] MEDS: guaiFENesin 600 MG Tab.ER PO SCH ×2 (14:01→21:31)
[2018-06-15] MEDS: Simvastatin 40 MG Tab **OWN MED PO SCH (21:35)
[2018-06-16] MEDS: Albuterol/Ipratropium 3.0-0.5 MG/3 ML Neb Soln NEB SCH ×3 (03:10→11:24)
[2018-06-16] MEDS: Heparin Sodium 5,000 Units/ML Vial SUBCUT SCH (06:00)
[2018-06-16] MEDS: Levothyroxine 25 MCG Tab **OWN MED PO SCH (06:00)
[2018-06-16 07:37] VITALS: BP 176/68; PULSE 88
[2018-06-16] MEDS: Insulin Lispro 100 Units/ML 3 ML Vial SUBCUT SCH ×2 (08:09→11:25)
[2018-06-16] MEDS: Aspirin 81 MG Tab.EC **OWN MED PO SCH (08:10)
[2018-06-16] MEDS: Omeprazole 20 MG Cap.CR **OWN MED PO SCH (08:10)
[2018-06-16] MEDS ORDERED: CALCITRIOL 0.25 MCG PO SCH (09:00)
[2018-06-16] MEDS: Metoprolol Succinate 25 MG Tab.ER **OWN MED PO SCH (09:28)
[2018-06-16] MEDS: PREDNISONE 20 MG PO SCH (09:28)
[2018-06-16] MEDS: Furosemide 20 MG Tab **OWN MED PO SCH (09:29)
[2018-06-16] MEDS: DOXYCYCLINE 100 MG PO SCH (09:29)
[2018-06-16] MEDS: Allopurinol 100 MG Tab **OWN MED PO SCH (09:29)
[2018-06-16] MEDS: guaiFENesin 600 MG Tab.ER PO SCH (09:32)
[2018-06-16] MEDS: CHOLECALCIFEROL PO SCH (09:32)
[2018-06-16] MEDS: Formoterol/Mometasone 100-5 MCG 8.8 GM Inhaler IH SCH (09:32)
--- NOTE | 2018-06-16 11:41 | PCM.DCSUM1 ---
Discharge Summary - Hospital Course Free Text/Narrative:: Ms. Kulkarni is an 88 y.o female with medical history significant for COPD with recurrent exacerbations, chronic respiratory failure with hypoxia requiring intermittent home O2 therapy, CHF, and CKD who presented to the ED with complaints of shortness of breath. Patient was seen on 06/12 for similar complaints and was sent home with Prednisone 20 mg PO daily and Doxycycline 100 mg PO BID. Prednisone dose was increased to 40 mg PO daily. She was given mucinex for cough. She had an episode of delirium overnight but was back to her baseline this morning. She reported urinary frequency. UA was negative for nitrite but had trace leukocytes. Also had moderate epithelial cells, signifying poor sample. Her blood glucose on presentation was elevated and continued to have elevated blood glucose during hospitalization. This was deemed to be due to background insulin resistance but also component of hyperglycemia due to steroids. Family was instructed to bring blood glucose log to PCP while off steroids so PCP can discuss management options with them. She was discharged home with home health nursing. [facility] Certification: Patient is an 88 y.o female with PMH of COPD with recurrent exacerbations on home oxygen. Patient has had 2 ER visits prior to admission with recent home treatment of oral prednisone and doxycycline. Patient will need home health nursing to monitor respiratory status, oxygen saturations. Patient also noted to have elevated blood sugars while on steroids. Patient is home bound due to decreased mobility due to age and requires front wheel walker for ambulation. Dr. Mars of [facility] will follow patient on discharge. HPI Initial Comments: Ms. Kulkarni is an 88 y.o female with medical history significant for COPD with recurrent exacerbations, chronic respiratory failure with hypoxia requiring intermittent home O2 therapy, CHF, and CKD who presented to the ED with complaints of shortness of breath. Patient was seen on 06/12 for similar complaints and was sent home with Prednisone 20 mg PO daily and Doxycycline 100 mg PO BID. She returned to the ED with complaints of shortness of breath. However, when I interviewed her, patient reports she came to the ED due to intermittent abdominal pain. She is unable to characterize her abdominal pain. Also unable to state whether this pain radiates. States that she does not have abdominal pain now. Had a normal bowel movement this morning. Denies diarrhea, constipation, melena, or hematochezia. Reports non-productive cough but states that this is unchanged from baseline. Family unavailable to provide collateral information. Denies tobacco or alcohol use. No illicit drug use. Denies chest pain, rhinorrhea, fevers, chills, dysuria, or any other symptoms. Diagnosis: Stroke: No - Discharge Data Discharge Date: 06/16/18 Discharge Disposition: Home, Self-Care 01 Condition: Good - Discharge Diagnosis/Problem(s) (1) Acute respiratory failure with hypoxia SNOMED Code(s): 26054587, 318821904 ICD Code: J96.01 - ACUTE RESPIRATORY FAILURE WITH HYPOXIA Status: Acute (2) Obesity (BMI 35.0-39.9 without comorbidity) SNOMED Code(s): 108626495, 656400521 ICD Code: E66.9 - OBESITY, UNSPECIFIED Status: Acute (3) Acute exacerbation of chronic obstructive pulmonary disease (COPD) SNOMED Code(s): 622499692 ICD Code: J44.1 - CHRONIC OBSTRUCTIVE PULMONARY DISEASE W (ACUTE) EXACERBATION Status: Acute (4) Chronic CHF (congestive heart failure) SNOMED Code(s): 99319020 ICD Code: I50.9 - HEART FAILURE, UNSPECIFIED Status: Acute Qualifiers: Heart failure type: unspecified Qualified Code(s): I50.9 - Heart failure, unspecified (5) Hyperglycemia SNOMED Code(s): 65332892 ICD Code: R73.9 - HYPERGLYCEMIA, UNSPECIFIED Status: Acute - Discharge Plan *PRESCRIPTION DRUG MONITORING PROGRAM REVIEWED*: No *COPY OF PRESCRIPTION DRUG MONITORING REPORT IN PATIENT SAMI: No Prescriptions/Med Rec: guaiFENesin [Mucinex] 600 mg PO TID #12 tab.er Home Medications: Home Meds Allopurinol 100 mg PO DAILY 03/17/15 [History] Aspirin [Halfprin] 81 mg PO DAILY 03/17/15 [History] Calcitriol [Rocaltrol] 0.5 mcg PO ASDIRECTED 03/17/15 [History] Cholecalciferol (Vitamin D3) [Vitamin D3] 1,000 unit PO DAILY 03/17/15 [History] Formoterol/Mometasone [Dulera 100 MCG/5 MCG] 2 puff PO BID 03/17/15 [History] Omeprazole 20 mg PO DAILY 03/17/15 [History] Simvastatin [Zocor] 40 mg PO BEDTIME 03/17/15 [History] Albuterol [Take Home: Albuterol 0.083%, 4 Neb Pack] 3 ml NEB Q4H PRN 06/18/15 [ History] Albuterol/Ipratropium [DuoNeb 3.0-0.5 MG/3 ML] 3 ml NEB QID PRN 06/18/15 [ History] Doxycycline [Vibramycin] 100 mg PO BID 06/14/18 [History] Furosemide [Lasix] 20 mg PO DAILY 06/14/18 [History] Levothyroxine Sodium [Synthroid] 25 mcg PO ACBREAKFAST 06/14/18 [History] Metoprolol Succinate 25 mg PO BID 06/14/18 [History] predniSONE [Prednisone] 40 mg PO DAILY 06/14/18 [History] guaiFENesin [Mucinex] 600 mg PO TID #12 tab.er 06/16/18 [Rx] Oxygen Therapy Mode: Nasal Cannula Oxygen Flow Rate (L/min): 2 Patient Handouts: Guaifenesin oral ER tablets - Discharge Summary/Plan Comment DC Time >30 min.: Yes - General Info Date of Service: 06/16/18 Admission Dx/Problem (Free Text: Admission Diagnosis/Problem Admission Diagnosis/Problem Acute respiratory failure with hypoxia Subjective Update: Patient was delirious overnight. Patient states that she still has cough but that it is improved.. Denies fevers, chills, chest pain, n/v/d/c. No other concerns. - Review of Systems General: Reports: Weakness (at baseline) HEENT: Reports: No Symptoms Pulmonary: Reports: Shortness of Breath (at baseline) Cardiovascular: Reports: No Symptoms Gastrointestinal: Reports: No Symptoms Genitourinary: Reports: Frequency Musculoskeletal: Reports: No Symptoms Skin: Reports: No Symptoms Neurological: Reports: No Symptoms Psychiatric: Reports: No Symptoms - Patient Data Vitals - Most Recent: Last Vital Signs Temp 98.1 F 06/16/18 07:37 Pulse 88 06/16/18 07:37 Resp 20 06/16/18 07:37 BP 176/68 H 06/16/18 07:37 Pulse Ox 98 06/16/18 07:37 Weight - Most Recent: 181 lb 12.8 oz I&O - Last 24 hours: Intake & Output 06/15/18 06/16/18 06/16/18 22:59 06:59 14:59 Intake Total 200 1020 325 Output Total 1400 Balance 200 -380 325 Lab Results - Last 24 hrs: Laboratory Results - last 24 hr 06/15/18 06/15/18 06/16/18 Range/Units 16:46 21:01 07:29 POC Glucose 428 H* 275 H 169 H (83-110) mg/dl Urine Color (YELLOW) Urine Appearance (CLEAR) Urine pH (5.0-9.0) Ur Specific [place] (1.005-1.030) Urine Protein (NEGATIVE) Urine Glucose (UA) (NEGATIVE) Urine Ketones (NEGATIVE) Urine Occult Blood (NEGATIVE) Urine Nitrite (NEGATIVE) Urine Bilirubin (NEGATIVE) Urine Urobilinogen (0.2-1.0) mg/dL Ur Leukocyte Esterase (NEGATIVE) Urine RBC /HPF Urine WBC (0-5/HPF) /HPF Ur Epithelial Cells /HPF Urine Bacteria (0-FEW/HPF) /HPF 06/16/18 Range/Units 09:33 POC Glucose (83-110) mg/dl Urine Color Yellow (YELLOW) Urine Appearance Turbid (CLEAR) Urine pH 5.5 (5.0-9.0) Ur Specific [place] 1.010 (1.005-1.030) Urine Protein 100 H (NEGATIVE) Urine Glucose (UA) Negative (NEGATIVE) Urine Ketones Negative (NEGATIVE) Urine Occult Blood Trace-intact H (NEGATIVE) Urine Nitrite Negative (NEGATIVE) Urine Bilirubin Negative (NEGATIVE) Urine Urobilinogen 0.2 (0.2-1.0) mg/dL Ur Leukocyte Esterase Small H (NEGATIVE) Urine RBC 0-5 /HPF Urine WBC >100 H (0-5/HPF) /HPF Ur Epithelial Cells Moderate H /HPF Urine Bacteria Many H (0-FEW/HPF) /HPF [place] Results - Last 24 hrs: Microbiology 06/14/18 09:16 Aerobic Blood Culture - Preliminary Blood - Venous - Lab Draw NO GROWTH AFTER 2 DAYS Anaerobic Blood Culture - Preliminary NO GROWTH AFTER 2 DAYS 06/14/18 08:44 Aerobic Blood Culture - Preliminary Blood - Venous NO GROWTH AFTER 2 DAYS Anaerobic Blood Culture - Final 06/15/18 10:40 Influenza Type A Antigen Screen - Final Nasal, Right NEGATIVE INFLUENZA A VIRUS AG Influenza Type B Antigen Screen - Final NEGATIVE INFLUENZA B VIRUS AG Med Orders - Current: Current Medications Discontinued Medications Acetaminophen (Tylenol) 650 mg PO Q4H PRN PRN Reason: Pain Last Admin: 06/15/18 01:28 Dose: 650 mg Albuterol (Proventil Neb Soln) 2.5 mg NEB Q4HRRT PRN PRN Reason: Shortness of Breath Albuterol/Ipratropium (Duoneb 3.0-0.5 Mg/3 Ml) 3 ml NEB ONETIME ONE Stop: 06/14/18 08:31 Last Admin: 06/14/18 08:36 Dose: 3 ml Albuterol/Ipratropium (Duoneb 3.0-0.5 Mg/3 Ml) 3 ml NEB QIDRT PRN PRN Reason: Shortness of Breath Last Admin: 06/14/18 14:20 Dose: 3 ml Albuterol/Ipratropium (Duoneb 3.0-0.5 Mg/3 Ml) 3 ml NEB Q4HRRT [facility] Last Admin: 06/16/18 11:24 Dose: Not Given Allopurinol (Zyloprim) 300 mg PO Q48H [facility] Last Admin: 06/14/18 14:42 Dose: Not Given Bisacodyl (Dulcolax) 5 mg PO DAILY PRN PRN Reason: Constipation Calcitriol (Rocaltrol) 0.25 mcg PO DAILY [facility] Docusate Sodium (Colace) 100 mg PO BID PRN PRN Reason: Constipation Furosemide (Lasix) 20 mg PO Q48H [facility] Last Admin: 06/14/18 14:42 Dose: Not Given Guaifenesin (Mucinex) 600 mg PO TID [facility] Last Admin: 06/16/18 09:32 Dose: 600 mg Heparin Sodium (Porcine) (Heparin Sodium) 5,000 units SUBCUT Q8HR [facility] Last Admin: 06/16/18 06:00 Dose: 5,000 units Insulin Human Lispro (Humalog) 0 unit SUBCUT QIDACANDBED [facility]; Protocol Last Admin: 06/16/18 11:25 Dose: Not Given Insulin Human Lispro (Humalog) 10 unit SUBCUT ONETIME ONE Stop: 06/14/18 21:16 Last Admin: 06/14/18 21:30 Dose: 10 units Insulin Human Lispro (Humalog) 0 unit SUBCUT ONETIME ONE Stop: 06/14/18 22:54 Last Admin: 06/14/18 23:15 Dose: 10 units Lisinopril (Prinivil) 5 mg PO DAILY [facility] Magnesium Hydroxide (Milk Of Magnesia) 30 ml PO Q12H PRN PRN Reason: Constipation Methylprednisolone Sodium Succinate (Solu-Medrol) 125 mg IVPUSH ONETIME ONE Stop: 06/14/18 08:31 Last Admin: 06/14/18 08:44 Dose: 125 mg Metoprolol Succinate (Toprol Xl) 50 mg PO DAILY [facility] Mometasone Furoate/Formoterol Fumar (Dulera 100-5 Mcg) 2 puff IH BID [facility] Last Admin: 06/16/18 09:32 Dose: 2 puff Non-Formulary Medication (Amlodipine Besylate [Amlodipine Besylate]) 10 mg PO DAILY [facility] Non-Formulary Medication (Calcium Citrate/Vitamin D3 [Calcium Cit-Vit D 315-200] ) 1 tab PO DAILY [facility] Ondansetron HCl (Zofran Odt) 4 mg PO Q6H PRN PRN Reason: nausea, able to take PO Aspirin 81 Mg Tab.Ec (Own Med) 1 each PO BRK [facility] Last Admin: 06/16/18 08:10 Dose: 1 each Cholecalciferol Vitamin D3 1,000 Unit Tab Own Med 1 each PO DAILY [facility] Last Admin: 06/16/18 09:32 Dose: 1 each Doxycycline 100 Mg (Tab Own Med) 1 each PO BID [facility] Stop: 06/20/18 09:01 Last Admin: 06/16/18 09:29 Dose: 1 each Omeprazole 20 Mg Cap (.Cr Own Med) 1 each PO DAILY@0700 [facility] Last Admin: 06/16/18 08:10 Dose: 1 each Prednisone 20 Mg Tab (Own Med) 0 each PO DAILY [facility] Stop: 06/18/18 09:01 Last Admin: 06/16/18 09:28 Dose: 1 each Simvastatin 40 Mg (Tab Own Med) 1 each PO BEDTIME [facility] Last Admin: 06/15/18 21:35 Dose: 1 each Furosemide 20 Mg Tab (Own Med) 1 each PO DAILY [facility] Last Admin: 06/16/18 09:29 Dose: 1 each Metoprolol Succinate 25 Mg Tab.Er Own Med 1 each PO BID [facility] Last Admin: 04/04/19 09:28 Dose: 1 each Levothyroxine 25 Mcg (Tab Own Med) 1 each PO ACBREAKFAST [facility] Last Admin: 06/16/18 06:00 Dose: 1 each Calcitriol 0.25 Mcg (Cap Own Med) 0 each PO SEECOMMENT [facility] Last Admin: 06/15/18 08:35 Dose: 1 each Allopurinol 100 Mg (Tab Own Med) 1 each PO DAILY [facility] Last Admin: 06/16/18 09:29 Dose: 1 each Calcitriol 0.25 Mcg (Cap Own Med) 0 each PO MoTuWeThFr@0900 [facility] Last Admin: 06/16/18 09:29 Dose: 1 each Polyethylene Glycol (Miralax) 17 gm PO DAILY PRN PRN Reason: Constipation Promethazine HCl (Phenergan) 25 mg PO Q6H PRN PRN Reason: nausea, able to take PO Senna/Docusate Sodium (Senna Plus) 1 tab PO BEDTIME PRN PRN Reason: Constipation Sodium Chloride (Saline Flush) 10 ml FLUSH ASDIRECTED PRN PRN Reason: Keep Vein Open Last Admin: 06/14/18 08:45 Dose: 10 ml - Exam General: Reports: Alert, Oriented, Cooperative, No Acute Distress HEENT: Reports: Pupils Equal, Pupils Reactive, Mucous Membr. Moist/[place] Lungs: Reports: Wheezing (Improved compared to presentation) Cardiovascular: Reports: Regular Rate, Regular Rhythm GI/Abdominal Exam: Normal Bowel Sounds, Non-Tender Extremities: Normal Inspection, Non-Tender, No Pedal Edema Skin: Reports: Warm, Dry, Intact Neurological: Reports: No New Focal Deficit Psy/Mental Status: Reports: Alert, Normal Affect, Normal Mood
== END 2018-06-16 11:00 | disposition home health service (06) ==
LOC: DL.ED 08:02 → DL.MS 10:05 → UNDOADMOB 10:05 → DL.MS 10:47
PROVIDERS: ADMIT Internal Medicine; ATTEND Internal Medicine
DX: J96.01 Acute respiratory failure with hypoxia (principal); J44.1 Chronic obstructive pulmonary disease with (acute) exacerbation; I13.2 Hypertensive heart and chronic kidney disease with heart failure and with stage 5 chronic kidney disease, or end stage renal disease; I50.9 Heart failure, unspecified; N18.6 End stage renal disease; Z99.2 Dependence on renal dialysis; E66.9 Obesity, unspecified; R73.9 Hyperglycemia, unspecified; Z79.82 Long term (current) use of aspirin; Z79.890 Hormone replacement therapy; Z79.899 Other long term (current) drug therapy
CPT/HCPCS: 36415; 71045; 80048; 80053; 81001; 82962; 83605; 83880; 85025; 85027; 87040; 87804; 94010; 94640; 96372; 96374; 99217; 99218; 99225; 99284; 99285; A9270; G0378; J1644; J1815; J2930; J7620-GY